=== PATIENT | female | born 1960 | race Caucasian/White ===

== ENCOUNTER 2019-01-26 01:19 | Outpatient (CLI) | payer BC, SELFPAY ==
--- NOTE | 2019-01-26 07:44 | DI.US_ITS ---
SYMPTOM/DIAGNOSIS: RT SIDED MASS OF UMBILICUS ABOUT 1 INCH DIAMETER. EPIGASTRIC PAIN R10.13, TENDERNESS TO PALPATION ULTRASOUND ABDOMINAL WALL: The area of the palpable abnormality was scanned. No mass or fluid collection is demonstrated on the images provided. IMPRESSION: Negative ultrasound of the abdominal wall. ULTRASOUND ABDOMEN: Comparison is made with 13 June 2007. The liver is normal in size and echogenicity. No focal liver lesions or biliary dilatation is seen. The gallbladder has a normal appearance. No stones or wall thickening is seen. The kidneys, spleen and pancreas are unremarkable. The aorta is normal in diameter. IMPRESSION: Negative abdomen ultrasound
== END 2019-01-26 01:39 ==
PROVIDERS: PCP Naturopath; Visit Provider Naturopath
DX: R10.13 Epigastric pain (principal); R19.05 Periumbilic swelling, mass or lump
CPT/HCPCS: 76700; 76705

== ENCOUNTER 2019-02-23 00:09 | Outpatient (CLI) | payer BC, SELFPAY ==
--- NOTE | 2019-02-23 07:30 | DI.MAMMO_ITS ---
EXAM: MAMMO SCREENING CLINICAL HISTORY: Screening, Z12.31 TECHNIQUE: Mammograms were interpreted according to the usual protocol including computer analysis with CAD system, tomosynthesis and C-view imaging. FINDINGS: The breast tissue is of moderate radiodensity with note again made of an area of asymmetric density i n the lateral portion of the right breast unchanged. There is no discrete mass. There are no suspici ous calcifications. There has been no significant interval change. IMPRESSION: No evidence of malignancy, category 1, annual screening mammography is recommended. Breast density category B. BI-RADS Cat 1 - Negative Breast Density - Category B - Scattered areas of fibroglandular density
== END 2019-02-23 00:29 ==
PROVIDERS: PCP Naturopath; Visit Provider Nurse Practitioner Family
DX: Z12.31 Encounter for screening mammogram for malignant neoplasm of breast (principal)
CPT/HCPCS: 77063; 77067

== ENCOUNTER 2019-05-14 08:33 | Day surgery (SDC) | payer BC, SELFPAY ==
--- NOTE | 2019-05-14 07:04 | W.COLOREPORT ---
Date of service: 05/14/19 Time of Service: 09:40 Colonoscopy Report Date of procedure: 05/14/19 Pre-op diagnosis general: Colon Cancer Screening Post-op diagnosis procedure note: other (Ascending colon polyp and Grade 1 internal hemorrhoids) Procedure: Colonoscopy with polypectomy Surgeon: Kalpana Stern Anesthesia proc note operative: other (General/ ASA 2/Tj Bledsoe CRNA ) Estimated blood loss (mL): 3 Pathology: other (Ascending colon polyp) Complications: None Disposition: other (General/ ASA /) Indications: 58 y/o female presents for colonoscopy screening pre-op. Her last screening was 12 years ago, which was unremarkable. She denies a family history of colon cancer. She denies any changes in bowel habits with reports of long standing intermittent constipation which fluctuates with her diet. She denies bloody or black tarry stools, abdominal pain, diarrhea. She denies constitutional symptoms. Denies use of marijuana or any other recreational or illegal drugs. Prep: Miralax/Dulcolax Procedure Start Time: 09:40 Procedure End Time: 10:11 Retraction Time: 19 minutes Findings: One small <1 cm polyp in the ascending colon Grade 1 internal hemorrhoids Procedure Description: After informed consent was obtained the patient was taken to the procedure room and placed in a left decubitous position. Monitors were applied and a time out was done. The patients name, date of , procedure, allergies to medications and metal in their body was reviewed. The patient was then sedated. Once sedated and comfortable a rectal exam was done. External exam was normal. Internal exam revealed a normal sphincter tone and no palpable masses. The scope was then introduced and retro-flexed. Grade 1 internal hemorrhoids were identified. No masses or polyps on retro-flexion. The scope was then advanced to the cecum without difficulty. The TI and appendiceal orifice were identified. The prep was adequate. The scope was then slowly retracted over 19 minutes back into the rectum. Polyps were removed with cold forceps in the ascending colon. The scope was removed and the patient was woken up and taken back to Same day surgery in stable condition. The patient tolerated the procedure well and there were no immediate complications. Follow up: The patient should follow up in 3-5 years unless they develop changes in bowel habits or other new gastrointestinal complaints.
--- NOTE | 2019-05-14 07:05 | W.PM.DSUDISC ---
Discharge Plan Disposition Patient Disposition: HOME Condition: Good Discharge Details Reason For Visit: Colon CAncer Screening Attending Provider: Kalpana Stern Primary Care Provider: Leigh Rodas Home Meds and New Rx's Prescriptions: Continued magnesium gluconate [Mag-G] 27 mg magnesium (500 mg) tablet 27 mg PO BID RF: 0 coenzyme [id number] 100-100 mg-unit capsule 1 cap PO DAILY RF: 0 aspirin 81 mg tablet,delayed release (DR/EC) 81 mg PO DAILY RF: 0 cyanocobalamin (vitamin B-12) [B-12 DOTS] 500 mcg tablet 500 mcg PO DAILY RF: 0 potassium gluconate 500 mg (83 mg) tablet 500 mg PO DAILY RF: 0 Discontinued polyethylene glycol 3350 17 gram/dose powder 238 g PO ONCE Qty: 238 RF: 0 bisacodyl [Dulcolax (bisacodyl)] 5 mg tablet,delayed release (DR/EC) 5 mg PO ONCE Qty: 4 RF: 0 Discharge Instructions Instructions: Colorectal Polyps (DC) Additional Instructions: Findings: 1 polyp Follow up: 3-5 years Please call if you develop: fevers >101.5 Nausea or Vomiting Abdominal pain that is not transient DAY SURGERY UNIT POST ENDOSCOPY INSTRUCTIONS 1. Because there will be medication in your system for the next 24 hours, you may feel a little sleepy. Your coordination will be affected. Therefore: a. Do not drive or operate dangerous equipment for 24 hours. b. Do not drink alcohol beverages for 24 hours (not even beer). c. Plan to go home and rest for the day. 2. Generally there are no restrictions on your activity after a day or so has gone by, but you may feel a bit fatigued for a few days. 3 After you arrive home you may have a light meal and return to a normal diet as you can tolerate it without feeling sick to your stomach. 4. After surgery, you may feel pain or discomfort. This should be only transient, but if it persists please contact your doctor. 5. If there are any questions regarding the findings of your procedure, please feel free to contact your doctor. 6. If you are unable to contact your doctor with a problem, contact the hospital at [phone]. 7. Continue all your regular medications unless directed otherwise. I understand the above instructions and have no questions. Signature of Patient or Responsible Adult Escort Date/Time Name of Responsible Adult Escort Signature of Nurse Date/Time Activity:: Activity as Tolerated Diet:: As Tolerated Discharge Orders Discharge Orders: Discharge Order (Routine); Ordered 05/14/19 Ordered By: Kalpana Stern DS: Diagnosis Discharge Diagnosis (1) Colorectal polyps: Status: Acute
[2019-05-14 08:48] VITALS: BP 134/86; PULSE 69; RESP 16; TEMP 36.2; O2SAT 96
[2019-05-14] MEDS: Lactated Ringers 1,000 ML 80 ML IV (09:13)
--- NOTE | 2019-05-14 09:58 | BOWEL_PTH ---
PATIENT: Minal Meléndez LOC: [facility] U#:[id number] AGE/SX: 59/F ROOM: RE05/14/[address]: Kalpana Stern MD : 1960 BED: DIS: 05/14/2019 SPEC #: [id number] RECD: 05/14/19 12:34 STATUS: TING REQ #: [id number] OSORIO: 05/14/19 09:[address]: Kalpana Stern DEPT: Surgical Specimen RECD BY: Lia Tabor ENTERED: 05/14/19 12:37 SP TYPE: Bowel OTHR DR: Leigh Rodas Tissues: 1 - BIOPSY BOWEL Procedures: GROSS AND MICRO LEVEL 4 Comments: [id number]
[2019-05-14 11:13] VITALS: BP 121/79; PULSE 69; RESP 16; TEMP 36.3; O2SAT 96
== END 2019-05-14 11:10 | disposition home or self-care (01) ==
LOC: SUR 08:33
PROVIDERS: PCP Naturopath; Visit Provider Surgery
PROC: 0DJD8ZZ Inspection of Lower Intestinal Tract, Via Natural or Artificial Opening Endoscopic (ICD-10-PCS; CPT 45378; principal; 2019-05-14 10:30)
DX: Z12.11 Encounter for screening for malignant neoplasm of colon (principal); D12.2 Benign neoplasm of ascending colon; K64.0 First degree hemorrhoids
CPT/HCPCS: 45380; 88305

== ENCOUNTER 2020-02-25 00:44 | Outpatient (CLI) | payer OTHER, SELFPAY ==
--- NOTE | 2020-02-25 08:00 | DI.MAMMO_ITS ---
EXAM: MG MAMMO SCREENING CLINICAL HISTORY: screening TECHNIQUE: Bilateral full field digital CC and MLO mammographic images were obtained with 3D tomosyn thesis and utilizing computer aided detection (CAD). COMPARISON: Available for comparison. FINDINGS: Masses/Architectural Distortion: None seen. Microcalcifications: No suspicious pleomorphic-type are seen. Skin Thickening/Nipple Retraction: None. IMPRESSION: 1. No significant interval change with no specific features of malignancy noted. 2. Unless there is more urgent need, screening mammography is recommended, as per [employer] guidelines. BI-RADS Category 1 - Negative Breast Density - Category B - Scattered areas of fibroglandular density A negative radiographic report should not delay biopsy if a dominant or clinically suspicious mass is present. Up to ten percent of cancers are not identified on mammography. A negative report may reinforce clinical impression. Adenosis and dense breasts may obscure an underlying neoplasm. False positive reports average 6 to 10%. Patient will receive a letter notifying them of these results.
== END 2020-02-25 01:04 ==
PROVIDERS: PCP Naturopath; Visit Provider Nurse Practitioner Family
DX: Z12.31 Encounter for screening mammogram for malignant neoplasm of breast (principal)
CPT/HCPCS: 77063; 77067

== ENCOUNTER 2020-12-17 07:29 | Outpatient (CLI) | payer OTHER, SELFPAY ==
--- OUTSIDE RECORDS SUMMARY | 2020-12-17 07:36 | XMS_ITS ---
:1960 Author Care Team Providers Name Role Phone DR. JUNG FALCON Primary Care Provider [phone] DR. JUNG FALCON Referring Provider [phone] Allergies Code Code System Name Reaction Severity Status Onset NKDA ? Medications Name Status Start Date Stop Date ? ? ampicillin 500 mg capsule Completed ? 2019 Take 1 capsule every 6 hours by oral route. Aspir-81 mg tablet,delayed release Active ? Not available Take 1 tablet every day by oral route. azithromycin 250 mg tablet Completed ? 11/07 TAKE 2 TABLETS (500 MG) BY ORAL ROUTE O NCE DAILY FOR 1 DAY THEN 1 TABLET (250 MG) BY ORAL ROUTE ONCE DAILY FOR 4 DAYS CoQ-10 100 mg capsule Active ? Not availa ble Take 1 capsule twice a day by oral route. GS-Similase Active ? Not available ONE CAP WITH MEALS OR LARGE SNACKS Stress B-Complex 500 mg-400 mcg-23.9 mg-3 mg tablet Active ? Not available Take 1 tablet every day by oral route. Notes: PALEO GREENS BREAST BLEND ONE CAP 3X DAILY ACTIVE B12 WITH FOLATE ONE TAB DAILY ULTRA GAMMA E ONE CAPSULE DAILY D-MULSION 2 DROPS DAILY CARDIO VH ONE CAPSULE DAILY IODINE TYROSINE ONE CAPSULE DAILY PURE PALEO VANILLIA GI FORTIFY 1 TSP AM AND PM INTESTINAL REPAIR B6+ B COMPLEX ONE CAPSULE DAILY IP6 ONE CAPSULE 2 TIMES DAILY MAGNESIUM TAURATE Problems Name Status Onset Date Source ? Vitamin D Deficiency Active 09/12/2018 ? Hyperhomocysteinemia Active 09/12/2018 ? 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 Restless Legs Active 09/12/2018 ? Essential Hypertension Active 09/12/2018 ? Venous Varices Active 09/12/2018 ? Urolithiasis Active 09/12/2018 ? Fibrocystic Disease of Breast Active 09/12/2018 ? Low Back Pain Active 09/12/2018 ? Cramp in Lower Limb Active 09/12/2018 ? Fatigue Active 09/12/2018 ? Eruption Active 09/12/2018 ? Flank Pain Active 09/12/2018 ? Lactose Intolerance Active 09/12/2018 ? Pain of Right Ankle Joint Active 09/12/2018 ? Procedures Date Name Performed by ? 05/16/2000 Hysterectomy Information not avai lable Results Lab Results None recorded. Past Encounters 11/08/2019 Avulsion of Toenail of Right Foot; Pain in Toe; Injury of Toe Isaak Jean: [address] [place] [address], Ph. Social History Tobacco Smoking Status Never Smoker Notes: 10/16/18 Vaccine List None recorded. Plan of Care Patient Instructions Performing warm water soaks with di sh soap to keep the nail bed clean I would have patient use Band-Aids to cover the matrix area should the condition worsen he should come back to see me or her PCP fo r further assistance. Reminders Provider Appointments None recorded. ? ? Lab None recorded. ? ? Referral None recorded. ? ? Procedures None recorded. ? ? Surgeries None recorded. ? ? Imaging None recorded. ? ? Vitals 11/08/2019 09:30AM PODIATRY IN-OFFICE PROCEDURE Weight Blood Pressure 102.06 kg 142/78 mm[Hg] 10/16/2018 01:00PM FOLLOW UP Height Weight BMI Blood Pressure 172.72 cm 99.79 kg 33.5 kg/m2 128/68 mm[Hg] 09/13/2018 12:45PM NEW PATIENT Height Weight BMI Blood Pressure 172.72 cm 99.79 kg 33.5 kg/m2 122/62 mm[Hg]
--- OUTSIDE RECORDS SUMMARY | 2020-12-17 07:37 | XMS_ITS ---
:1960 External Reference #:[id number] Author Care Team Providers Name Role Phone Knights Primary Care Provider Unavailable Allergies None recorded. Medications Name Status Start Date Stop Date ? ? ampicillin 500 mg capsule Completed ? 2019 azithromycin 250 mg tablet Completed ? 12/05 compounded medication Completed 12/02/2015 12/06/2019 Stress B Complex 1 cap /day compounded medication Active ? Not availa ble Paleo Greens compounded medication Active 10/12/2016 Not availa ble Breast Blend 1 cap 3xday for breast health and cancer prevention compounded medication Active 12/02/2015 Not availa ble CoQnol 1 cap 2 xday compounded medication Active 06/10/2016 Not availa ble Active B12 w/ Folate 1 tab/day with 1 cap Stress-B compounded medication Active 10/12/2016 Not availa ble Ultra Gamma E take 1 capsule daily compounded medication Completed 12/02/2015 12/06/2019 Similase 1 cap with meals or large snacks compounded medication Active 06/10/2016 Not availa ble D-Mulsion 2 drops/day compounded medication Completed 12/02/2015 10/04/2017 Cardio-VH 1 cap 3xday compounded medication Active 11/02/2017 Not availa ble Cardio VH Cardio VH1 cap once a day compounded medication Completed 10/12/2016 12/06/2019 Iodine Tyrosine 1 cap daily compounded medication Active 10/27/2016 Not availa ble Pure Paleo Vanilla use in smoothies compounded medication Completed ? 12/27/2017 GI Fortify compounded medication Active 12/02/2015 Not availa ble GI Fortify 1/2 tsp am and pm for 3 days1 tsp am an d pm for 3 [id number] AM and PM for a month compounded medication Completed ? 12/06/2019 Intestinal Repair compounded medication Active 01/05/2017 Not availa ble B6+B Complex 1 cap/day compounded medication Active 10/04/2017 Not availa ble IP6 1 cap 2x a day with meals compounded medication Active ? Not availa ble Magnesium Taurate Problems Name Status Onset Date Source ? Vitamin D Deficiency Active 11/07/2015 ? Restless Legs Active 11/07/2015 ? Fatigue Active 11/07/2015 ? Family History of Cardiovascular Disease Active 016 ? Family History of Diabetes Mellitus Active 11/07/2015 ? Hyperhomocysteinemia Active 12/02/2015 ? Essential Hypertension Active 12/02/2015 ? C-reactive Protein Abnormal Active 12/02/2015 ? Backache Active 12/08/2015 ? Fever Active 12/08/2015 ? Urolithiasis Active 12/09/2015 ? Acute Urinary Tract Infection Active 12/09/2015 ? Flank Pain Active 12/26/2015 ? Benign Essential Hypertension Active 01/01/2016 ? Low Back Pain Active 01/01/2016 ? Fibrocystic Disease of Breast Active 05/26/2016 ? Family History of Breast Cancer Active 05/26/2016 ? Eruption Active 06/10/2016 ? Scratch by Animal Claw Active 06/10/2016 ? Dietary Management Surveillance Active 10/12/2016 ? Lactose Intolerance Active 10/27/2016 ? Mammographic Breast Density Active 03/03/2017 ? Fibrocystic Changes of Bilateral Breasts Active 017 ? Cramp in Lower Limb Active 06/09/2017 ? Family History of Ischemic Heart Disease Active 018 ? High Glucose Level in Blood Active 07/05/2017 ? Serum Ferritin High Active 07/05/2017 ? Cramp in Lower Leg Associated with Rest Active 07/13/19 18 ? Homocystinemia Active 09/06/2017 ? Hyperlipidemia Screening Active 09/06/2017 ? Lipoma of Skin Active 02/19/2019 ? Gastroesophageal Reflux Disease Active 02/19/2019 ? Procedures Date Name Performed by ? 12/14/2000 Hysterectomy Information not avai lable 01/18/2019 US, Abdomen, Complete Xray [facility] [address] [place], [place] [address] ([address]) 12/16/2020 Electrocardiogram Xray [facility] [address] [place], [place] [address] (Work [address]) 12/16/2020 CT, Abdomen + Pelvis, W/wo Contrast [facility]ray [facility] [address] [place] [address] (Work [address]) Results Lab Results None recorded. Past Encounters 12/16/2020 Essential Hypertension; Cramp in Lower L imb; Backache; Urgent Desire to Urinate; Right Sided Abdominal Pain; Vitamin D Deficiency; Pain in Left Lower Limb; Right Flank Pain Leigh Rodas, ND: [address] [place] [address], Ph. [phone] 12/06/2019 Cramp in Lower Limb; Serum Ferritin High ; Vitamin D Deficiency; Family History of Thyroid Disorder; Homocystinemia; Benign Essential Hypertension Leigh Rodas, ND: [address] [place] [address], Ph. [phone] 11/07/2019 Injury of Great Toenail; Essential Hyper tension Leigh Rodas, ND: [address] [place] [address], Ph. [phone] Social History Tobacco Smoking Status Never Smoker Vaccine List Vaccine Type measles 08/14/1965 mumps 08/14/1965 pertussis 08/14/1965 polio, unspecified formulation 08/14/1965 rubella/mumps 08/14/1965 tetanus toxoid, unspecified formulation 08/14/1965 Plan of Care Patient Instructions 1. DR Liza Kay- MEtabolic REnewel- 2. - bloodwork and CT abdomen and pelvis - and [facility] 1. bloodwork come in TuesdayDec 09 7:30am 2. CArdio Vh- 1 cap 2xday 3. keep taking Vit D, MAgnesium B vits- etc PAleogreens every day Occult Blood- stool test- ask pcp or ani betts look into getting kit here but they might have them avail- YOUR RESULTS CAME BACK- ferritin is low- so Please do NOT donate blood right now- get stool test first and work on eating a little more iron- red meat 2xweek if not already, spinach, raisins, fisg, beans/legumes 1. Keep toe clean 2. Report to Podiatry tomorrow for toen sulaiman removal and Abs if necessary.Sent to Dr. Roldan 3. Return for general health. Blood pres sure readings and dietary surveillance Reminders Provider Appointments None recorded. ? ? Lab None recorded. ? ? Referral None recorded. ? ? Procedures None recorded. ? ? Surgeries None recorded. ? ? Imaging None recorded. ? ? Vitals 12/16/2020 08:45AM ESTABLISHED PATIENT 45 Weight Blood Pressure 227 lbs (1) 138/86 mm[Hg] (2) 150/98 mm[Hg] 11/07/2019 07:30AM ESTABLISHED PATIENT 30 Weight Blood Pressure 223 lbs 16 oz 138/88 mm[Hg] 03/28/2019 04:00PM ESTABLISHED PATIENT 45 Blood Pressure (1) 130/80 mm[Hg] (2) 128/82 mm[Hg] 01/31/2019 03:00PM ESTABLISHED PATIENT 45 Blood Pressure 132/88 mm[Hg] 01/18/2019 08:00AM ESTABLISHED PATIENT 45 Weight Blood Pressure 228 lbs 16 oz 140/90 mm[Hg] 11/02/2017 10:30AM ESTABLISHED PATIENT 30 Height Blood Pressure 5 ft 9 in 142/88 mm[Hg] 10/04/2017 11:00AM ESTABLISHED PATIENT 30 Height Weight BMI Blood Pressure 5 ft 9 in 216 lbs 16 oz 32 kg/m2 132/90 mm[Hg] 09/06/2017 01:15PM ESTABLISHED PATIENT 30 Height Weight BMI Blood Pressure 5 ft 9 in 215 lbs 16 oz 31.9 kg/m2 130/80 mm[Hg] 06/09/2017 01:45PM ESTABLISHED PATIENT 30 Height Weight BMI 5 ft 9 in 223 lbs 16 oz 33.1 kg/m2 03/03/2017 09:45AM ESTABLISHED PATIENT 30 Height Weight BMI Blood Pressure 5 ft 9 in 220 lbs 16 oz 32.6 kg/m2 120/90 mm[Hg] 01/05/2017 10:00AM ESTABLISHED PATIENT 30 Height Weight BMI 5 ft 9 in 218 lbs 32.2 kg/m2 12/02/2016 10:00AM ESTABLISHED PATIENT 60 Height Weight BMI Blood Pressure 5 ft 9 in 223 lbs 32.9 kg/m2 130/84 mm[Hg] 10/27/2016 11:15AM ESTABLISHED PATIENT 45 Height Weight BMI 5 ft 9 in 230 lbs 34 kg/m2 10/12/2016 11:00AM ESTABLISHED PATIENT 45 Height Weight BMI Blood Pressure 5 ft 9 in 232 lbs 16 oz 34.4 kg/m2 140/80 mm[Hg] 06/10/2016 11:00AM ESTABLISHED PATIENT 30 Height Weight BMI Blood Pressure 5 ft 9 in 236 lbs 34.9 kg/m2 110/80 mm[Hg] 05/26/2016 11:00AM ESTABLISHED PATIENT 45 Height Weight BMI Blood Pressure 5 ft 9 in 236 lbs 16 oz 35 kg/m2 130/80 mm[Hg] 01/01/2016 11:00AM ESTABLISHED PATIENT 30 Height Weight BMI Blood Pressure 5 ft 9 in 228 lbs 16 oz 33.8 kg/m2 118/76 mm[Hg] 12/26/2015 11:00AM ESTABLISHED PATIENT 30 Height Blood Pressure 5 ft 9 in 138/98 mm[Hg] 12/08/2015 11:30AM SICK VISIT Height 5 ft 9 in 12/02/2015 11:15AM ESTABLISHED PATIENT 45 Height Blood Pressure 5 ft 9 in 150/100 mm[Hg] 11/07/2015 11:30AM NEW PATIENT 60 Height Weight BMI Blood Pressure 5 ft 9 in 236 lbs 34.9 kg/m2 150/98 mm[Hg]
--- NOTE | 2020-12-17 13:00 | RT.EKG_ITS ---
APPROVED REPORT Exam: Resting ECG Reason for Exam: Hypertension Patient Location: O HR:72 bpm ECG Measurements Heart Rate 72 AXIS WI 169 P 39 QRSd 89 QRS 43 QT 382 T 28 QTc 418 Conclusion Sinus rhythm...normal P axis, V-rate 60- 99
== END 2020-12-17 07:30 | disposition home or self-care (01) ==
LOC: RT 07:35
PROVIDERS: PCP Naturopath; Visit Provider Naturopath
DX: I10 Essential (primary) hypertension (principal); R10.9 Unspecified abdominal pain
CPT/HCPCS: 93005; 93010

== ENCOUNTER 2020-12-18 04:15 | Outpatient (CLI) | payer OTHER, SELFPAY ==
[2020-12-18 08:33] LABS: Abs Immature Grans 0.01 10^3/uL (0.0-0.06); Absolute Basophil Count 0.03 10^3/uL (0.0-0.2); Absolute Lymphocyte Count 1.19 10^3/uL (1.2-3.4); Absolute Neutrophil Count 2.63 10^3/uL (1.2-6.7); Basophils % 0.7; HCT 37.8 % (36.0-46.0); HGB 11.7 g/dL (11.2-15.7); Immature Grans % 0.2; Lymphocytes % 27.9; MCH 24.8 pg (27.0-33.0); MCV 80.3 fL (80-95); MPV 10.3 fL (8.0-11.0); Monocytes % 9.4; Neutrophils % 61.8; Nucleated RBC 0 %; Platelet Count 265 10^3/uL (130-400); RBC 4.71 10^6/uL (3.93-5.22); RDW 15.2 % (11.7-14.6); RDW-SD 44.5 fL; WBC 4.26 10^3/uL (4.4-10.8)
[2020-12-18 08:49] LABS: Hemoglobin A1C 5.7 % (<5.7)
[2020-12-18 09:18] LABS: ALT 27 U/L (14-59); AST 20 U/L (15-37); Albumin 3.9 g/dL (3.4-5.0); Alkaline Phosphatase 82 U/L (46-116); Anion Gap 9.8 mmol/L (3-11); BUN 13 mg/dL (7-18); Bilirubin, Total 0.5 mg/dL (0.2-1.0); CO2 27.2 mmol/L (21.0-32.0); CREATININE 0.9 mg/dL (0.55-1.02); Calcium 9.1 mg/dL (8.5-10.1); Chloride 105 mmol/L (98-107); Glucose 92 mg/dL (74-106); Potassium 4.4 mmol/L (3.5-5.1); Sodium 142 mmol/L (136-145)
[2020-12-18 09:33] LABS: D-Dimer 334 ng/mlFEU (<500)
[2020-12-18 09:44] LABS: Vitamin D 25 Total 29.6 ng/mL (30-100)
== END 2020-12-18 04:16 | disposition home or self-care (01) ==
LOC: LBO 04:15
PROVIDERS: PCP Naturopath; Visit Provider Naturopath
DX: R39.15 Urgency of urination (principal); E55.9 Vitamin D deficiency, unspecified; M79.605 Pain in left leg
CPT/HCPCS: 36415; 80053; 82306; 81003; 83036; 85025; 85379

== ENCOUNTER 2020-12-18 15:00 | Outpatient (REF) | payer OTHER, SELFPAY ==
[2020-12-18 16:48] LABS: Bilirubin Negative (Negative); Blood Negative (Negative); Clarity Clear (Clear); Glucose Negative (Negative); Ketones 40 mg/dL (Negative); Leukocyte Esterase Negative (Negative); Nitrite Positive (Negative); Specific Gravity >= 1.030 (1.005-1.025); Urobilinogen 0.2 EU/dL (Up TO 0.2); pH 5.5 (5-8)
[2020-12-18 17:17] LABS: Bacteria Many HPF (Negative); Casts Negative LPF (Negative); Crystals Many Calcium Oxalate HPF (Negative); Epithelial Cells Few HPF (Negative); Mucus Negative (Negative); RBC Negative HPF (0-2); WBC 20-50 HPF (0-5)
[2020-12-18 17:18] LABS: C & S Indicated? Yes
== END 2020-12-18 15:01 | disposition home or self-care (01) ==
LOC: LBN 15:00
PROVIDERS: PCP Naturopath; Visit Provider Naturopath
DX: R39.15 Urgency of urination (principal)
CPT/HCPCS: 87077; 81003; 81015; 87086; 87186

== ENCOUNTER 2020-12-22 14:24 | Outpatient (REF) | payer OTHER, SELFPAY ==
[2020-12-24 08:54] LABS: Timed Urine Volume 2300 mL; Uric Acid Urine 19.9 mg/dL (See Note); Uric Acid Urine 24hr 458 mg/24hrs (250-750)
== END 2020-12-22 14:25 | disposition home or self-care (01) ==
LOC: LBN 14:24
PROVIDERS: PCP Naturopath; Visit Provider Naturopath
DX: R39.15 Urgency of urination (principal); E55.9 Vitamin D deficiency, unspecified; M79.605 Pain in left leg
CPT/HCPCS: 81050; 84560

== ENCOUNTER 2021-01-29 03:07 | Outpatient (CLI) | payer OTHER, SELFPAY ==
[2021-01-29 10:30] LABS: Iron 42 ug/dL (50-170); Total Iron Binding Capacity 418 ug/dL (250-450)
[2021-01-29 11:02] LABS: Calculated LDL 106 mg/dL (<100); Cholesterol 196 mg/dL (<200); Ferritin 19 ng/mL (8-252); HDL Cholesterol 82 mg/dL (40-60); TSH 2.25 uIU/mL (0.36-3.74); Triglyceride 41 mg/dL (<150); Vitamin B12 513 pg/mL (193-986)
[2021-01-29 11:05] LABS: Folate > 20.0 ng/mL (8.6-20.0)
[2021-01-29 11:27] LABS: FREE T4 0.95 ng/dL (0.76-1.46)
[2021-01-29 16:47] LABS: T3,Free 2.8 pg/mL (2.8-5.3)
== END 2021-01-29 03:08 | disposition home or self-care (01) ==
LOC: LBO 03:07
PROVIDERS: PCP Naturopath; Visit Provider Naturopath
DX: R00.0 Tachycardia, unspecified (principal); R77.8 Other specified abnormalities of plasma proteins; Z13.220 Encounter for screening for lipoid disorders; E61.1 Iron deficiency
CPT/HCPCS: 36415; 80061; 82607; 82728; 82746; 83540; 83550; 84439; 84443; 84481

== ENCOUNTER 2021-03-06 10:17 | Outpatient (REF) | payer OTHER, SELFPAY | END 2021-03-06 10:18 | disposition home or self-care (01) | LOC: LBN 10:17 | PROVIDERS: PCP Naturopath; Visit Provider Nurse Practitioner Family | DX: R30.0 Dysuria (principal) | CPT/HCPCS: 87077; 87086; 87186 ==

== ENCOUNTER 2021-03-10 00:59 | Outpatient (CLI) | payer OTHER, SELFPAY ==
--- NOTE | 2021-03-10 14:30 | DI.MAMMO_ITS ---
Exam(s) MAMMO SCREENING EXAM: MAMMO SCREENING CLINICAL HISTORY: screening TECHNIQUE: Mammograms were interpreted according to the usual protocol including computer analysis w [employer] CAD system, tomosynthesis and C-view imaging. COMPARISON: 2011 through 2019 FINDINGS: The breasts are composed of scattered fibroglandular densities, Breast Density category B. No suspicious masses or suspicious microcalcifications are seen. No skin thickening or abnormal axillary lymph nodes are seen. There has been no significant change from prior exams. IMPRESSION: BI-RADS Category 1, Negative mammogram Yearly screening mammography is recommended. Breast Density - Category B, scattered fibroglandular densities. A negative radiographic report should not delay biopsy if a dominant or clinically suspicious mass is present. Up to ten percent of cancers are not identified on mammography. A negative report may reinforce clinical impression. Adenosis and dense breasts may obscure an underlying neoplasm. False positive reports average 6 to 10%. Patient will receive a letter notifying them of these results.
== END 2021-03-10 01:19 ==
PROVIDERS: PCP Naturopath; Visit Provider Nurse Practitioner Family
DX: Z12.31 Encounter for screening mammogram for malignant neoplasm of breast (principal)
CPT/HCPCS: 77063; 77067

== ENCOUNTER 2021-06-18 16:36 | Outpatient (REF) | payer OTHER, SELFPAY ==
[2021-06-18 12:50] LABS: Bilirubin Negative (Negative); Blood Negative (Negative); Clarity Sl Cloudy (Clear); Glucose Negative (Negative); Ketones Negative (Negative); Leukocyte Esterase Trace (Negative); Nitrite Negative (Negative); Specific Gravity >= 1.030 (1.005-1.025); Urobilinogen 0.2 EU/dL (Up TO 0.2); pH 6.5 (5-8)
[2021-06-18 13:08] LABS: Bacteria Few HPF (Negative); C & S Indicated? Yes; Casts Negative LPF (Negative); Crystals Negative HPF (Negative); Epithelial Cells Few HPF (Negative); Mucus Negative (Negative); RBC Negative HPF (0-2)
== END 2021-06-18 16:37 | disposition home or self-care (01) ==
LOC: LBN 16:36
PROVIDERS: PCP Naturopath; Visit Provider Obstetrics & Gynecology
DX: R30.0 Dysuria (principal)
CPT/HCPCS: 87077; 81003; 81015; 87086; 87186

== ENCOUNTER 2021-07-12 09:51 | Inpatient (IN) | payer OTHER, SELFPAY ==
[2021-07-12] VITALS (12 sets, daily range): BP systolic 91–131; BP diastolic 64–85; PULSE 70–114; RESP 16–19; TEMP 36–36.7; O2SAT 94–97
--- NOTE | 2021-07-12 10:00 | ED.GENADUL_ITS ---
Discharge Plan Disposition Patient Disposition: [facility] INPATIENT Condition: Stable Discharge Details Clinical Impression: Acute diverticulitis, Bowel perforation Admit Date/Time: 07/12/21 11:52 Admit Provider: Abby Sanches Attending Provider: Abby Sanches Primary Care Provider: Leigh Rodas ED Provider: Yaneth Hernandez Discharge Data Discharge Date/Time-TO BE ENTERED AT DEPARTURE: 07/12/21 12:45 Medical Decision Making 1000 -- 61-year-old female presents with lower abdominal pain, worse on the left side in addition to nausea and diarrhea for the past few days. Heart rate elevated on arrival, now within normal limits and she appears nontoxic. Her abdomen is soft but she is tender in the lower quadrants, worse on the left lower side. Includes differential diagnosis includes diverticulitis, cystitis, pyelonephritis, gastroenteritis, colitis. We will place an IV, bolus IV fluids, screening labs, urinalysis, CT abdomen pelvis and give a dose of IV Tylenol Zofran and reassess. Labs and imaging reviewed. White blood cell count 13. Normal electrolytes. Lipase normal. Urinalysis negative for infection. CT notes acute sigmoid diverticulitis with local free air c/w small perforation but no abscess or loculated fluid collection noted. 1145 -- Case discussed with Dr. Sanches who accepts patient for admission. Dose of IV Cipro and Flagyl ordered. Patient has remained hemodynamically stable. Her pain has been controlled. She is agreeable with plan for admission. Medical Records Medical records reviewed: Yes I reviewed the patient's medical records. Imaging Data Radiologic Study: Radiologist's impression: CT Abdomen And Pelvis With Contrast Exam date and time: 07/12/2021 10:17 AM Age: 61 years old Clinical indication: Abdominal pain; Generalized; Patient HX: Lower abd pain - 2-3 days worse on left TECHNIQUE: Imaging protocol: Computed tomography of the abdomen and pelvis with contrast. Radiation optimization: All CT scans at this facility use at least one of these dose optimization techniques: automated exposure control; mA and/or kV adjustment per patient size (includes targeted exams where dose is matched to clinical indication); or iterative reconstruction. Contrast material: OMNI 350; Contrast volume: 100 ml; Contrast route: INTRAVENOUS (IV);? COMPARISON: US soft tiss abd wall/low back 01/26/2019 8:29 AM FINDINGS: Lungs: 4 mm lung soft tissue nodule in the lateral basal segment of the left lower lobe (series 5, image 49). 5 mm lung soft tissue nodule in the lateral segment of the right middle lobe (series 5, image 41). Heart: The visualized heart is within normal limits for size. There is no evidence of pericardial abnormality.? Liver: The liver is normal in size and contour.? Gallbladder and bile ducts: The gallbladder is distended with normal wall thickness and does not demonstrate calcified gallstones. No intra- or extra-hepatic biliary ductal dilatation.? Pancreas: The pancreas appears normal.? Spleen: The spleen appears normal.? Adrenal glands: The adrenals appear normal. Kidneys and ureters: The kidneys enhance symmetrically and empty into non-dilated ureters.? Stomach and bowel: Colonic diverticulosis. Findings consistent with acute diverticulitis in the sigmoid colon in the left lower quadrant. Adjacent peritoneal thickening and chrissy-diverticular fat stranding identified. Trace free air adjacent to the diverticula but well-marginated collection identified. Trace free fluid in the dependent portion of the pelvis. Appendix: The appendix appears diminutive. Intraperitoneal space: Trace free fluid in the dependent portion of the pelvis. Vasculature: The aorta is nonaneurysmal. The IVC appears normal.? Lymph nodes: There are no enlarged lymph nodes.? Urinary bladder: The bladder is distended and demonstrates no focal contour abnormality. Reproductive: The uterus is surgically absent. Mild soft tissue prominence of the right vaginal cuff measuring approximately 2.4 x 2.8 x 1.9 cm (axial series 5, image 813). Bones/joints: Grade 1 anterolisthesis L3 on L4 by approximately 5 mm. Degenerative disc disease at L4-5. Soft tissues: Unremarkable. IMPRESSION: 1. Findings consistent with acute sigmoid diverticulitis. Local free air identified consistent with small perforation. No fluid identified adjacent to the sigmoid, but minimal fluid identified in the dependent portion of the pelvis. No loculated well formed collection/abscess identified. 2. Mild soft tissue prominence of the right vaginal cuff measuring approximately 2.4 x 2.8 x 1.9 cm. No comparisons available. Recommend correlation with surgical history and any available outside imaging. Lab Data Lab results reviewed: Yes I reviewed the patient's lab results. Labs: Laboratory Tests Range/Units 07/12/21 07/12/21 07/12/21 10:00 10:00 10:15 WBC (4.4-10.8) 10^3/uL 13.01 H RBC (3.93-5.22) 10^6/uL 4.77 Hgb (11.2-15.7) g/dL 13.5 Hct (36.0-46.0) % 41.0 MCV (80-95) fL 86.0 MCH (27.0-33.0) pg 28.3 MCHC (32.0-36.0) % 32.9 RDW (11.7-14.6) % 13.3 Plt Count (130-400) 10^3/uL 214 MPV (8.0-11.0) fL 9.9 Immature Gran % 0.6 Neutrophils % 80.8 Lymphocytes % 11.5 Monocytes % 6.9 Eosinophils % 0.0 Basophils % 0.2 Nucleated RBC % % 0 Absolute Neutrophils (1.2-6.7) 10^3/uL 10.51 H Absolute Lymphocytes (1.2-3.4) 10^3/uL 1.50 Absolute Monocytes (0.1-0.8) 10^3/uL 0.90 H Absolute Eosinophils (0.0-0.7) 10^3/uL 0.00 Absolute Basophils (0.0-0.2) 10^3/uL 0.03 Sodium (136-145) mmol/L 138 Potassium (3.5-5.1) mmol/L 3.6 Chloride (98-107) mmol/L 101 Carbon Dioxide (21.0-32.0) mmol/L 25.5 Anion Gap (3-11) mmol/L 11.5 H BUN (7-18) mg/dL 14 Creatinine (0.55-1.02) mg/dL 0.9 Estimated GFR/1.73 m2 (mL/min/1.73m2) >= 60.00 Glucose (74-106) mg/dL 142 H Calcium (8.5-10.1) mg/dL 9.4 Total Bilirubin (0.2-1.0) mg/dL 0.8 AST (15-37) U/L 16 ALT (14-59) U/L 25 Alkaline Phosphatase (46-116) U/L 81 Total Protein (6.4-8.2) g/dL 7.7 Albumin (3.4-5.0) g/dL 3.5 Lipase (73-393) U/L 32 Urine Color (Yellow) Yellow Urine Clarity (Clear) Clear Urine pH (5-8) 6.0 Ur Specific [place] (1.005-1.025) >= 1.030 H Urine Protein (Negative) mg/dL 30 H Urine Ketones (Negative) mg/dL 40 H Urine Blood (Negative) Negative Urine Nitrite (Negative) Negative Urine Bilirubin (Negative) Small H Urine Urobilinogen (Up TO 0.2) EU/dL 0.2 Ur Leukocyte Esterase (Negative) Negative Urine RBC (0-2) HPF 0-2 Urine WBC (0-5) HPF Negative Ur Epithelial Cells (Negative) HPF Few Urine Crystals (Negative) HPF Negative Urine Bacteria (Negative) HPF Negative Urine Casts (Negative) LPF 0-2 Hyaline Urine Mucus (Negative) Trace Ur Culture Indicated? No Urine Glucose (Negative) mg/dL Negative HPI General Mode of arrival: ambulatory . Date/Time Provider Initiated Documentation: 07/12/21 09:52 . Limitations to Documentation: no limitations . Information obtained by: patient . HPI Narrative: Patient is a 61-year-old female who presents with lower abdominal pain, worse on the left side for the past few days. Patient states the pain is intermittent and crampy and worse with movement and carrying heavy objects. She states the pain was 8/10 earlier today and she took 3 tabs of 325 mg aspirin now the pain is 4/10. She states she thought the pain was gas earlier this week but the symptoms have not gone away and she spoke to her friend who is a nurse who advised that she come to the ER for further evaluation. Patient states she has been treated for UTIs recently with antibiotics, last use 2 weeks ago. She denies any current urinary symptoms. She admits to nausea but denies any vomiting. She states she has had loose brown and black stools over the past 3 days. She denies any known fever but does admit to occasional cold chills the past few days. Patient states she had a colonoscopy 2 years ago. Records note that she was found to have internal hemorrhoids and a polyp. Related Data Home Medications Medication Instructions Recorded Confirmed aspirin 81 mg tablet,delayed 81 mg PO DAILY 04/27/19 07/12/21 release coenzyme [id number] E 100 mg-100 1 cap PO DAILY 04/27/19 07/12/21 unit capsule magnesium gluconate 27 mg 27 mg PO BID 04/27/19 07/12/21 magnesium (500 mg) tablet (Mag-G) lactobacillus combination no.8 3 3,000 mmu cells PO DAILY 02/04/20 07/12/21 billion cell capsule (Adult Probiotic) vitamin B complex (B 1 tab PO DAILY 03/06/21 07/12/21 Complex-Vitamin B12) potassium chloride 10 mEq 10 meq PO DAILY 03/23/21 07/12/21 capsule,extended release Allergies Allergy/AdvReac Type Severity Reaction Status Date / Time No Known Allergies Allergy Verified 07/12/21 10:00 General Stated Complaint: Abd Prob YANIQUE: 3 Review of Systems All systems reviewed & are unremarkable except as noted in HPI and below Constitutional Constitutional: Reports as per HPI, Reports chills, Denies fever(s) and Reports poor appetite Eyes Eyes: Denies blurry vision ENT Ears, Nose, Mouth, and Throat: Denies dizziness, Denies sore throat and Denies throat swelling Cardiovascular Cardiovascular: Denies chest pain and Denies dyspnea Respiratory Respiratory: Denies cough and Denies dyspnea Gastrointestinal Gastrointestinal: Reports abdominal pain, Reports diarrhea, Reports nausea and Denies vomiting Genitourinary Genitourinary: Denies hematuria, Denies dysuria, Denies urinary hesitancy and Denies urinary urgency Musculoskeletal Musculoskeletal: Denies back pain and Denies numbness Integumentary/Breasts Skin/Breast: Denies lesions and Denies rash Neurologic Neurologic: Denies dizziness, Denies localized weakness and Denies numbness Allergic/Immunologic Allergic/Immunologic: Denies throat swelling PFSH All Active Problems (Updated 05/18/19 @ 06:43 by Callie Nowak RN) Acute diverticulitis (Acute) Bowel perforation (Acute) GINI (stress urinary incontinence, female) (Acute) Cystocele (Acute) Colorectal polyps (Acute ~05/14/19) Family history of breast cancer (Acute 03/22/17) Mother Acquired absence of both cervix and uterus (Acute 02/26/16) MERRICK/BSO age 41 for Endometriosis and fibroid Medical History (Updated 07/12/21 @ 13:38 by Yaneth Hernandez DO) Endometriosis Uterine leiomyoma Surgical History (Updated 05/18/19 @ 06:43 by Callie Nowak RN) Abdominal hysterectomy 2000 History of colonoscopy (~05/14/19) 05/03 - tubular adenoma 2007- nl Oophrectomy, Both 2000 Family History Mother Breast cancer at 50 Other Family history of breast cancer Personal history of malignant neoplasm Social History (Updated 04/27/19 @ 10:16 by MICHAEL Grove) Smoking/Tobacco Use Status: Never Smoking risk assessment performed?: Yes Alcohol Intake: current Alcohol Intake frequency: holidays/special occasions only Alcohol type: wine Drug use: Never Substance use type: does not use Details: takes cbd oil Do you feel safe at home: Yes Do you feel safe in your relationship?: Yes Female Reproductive History Menstrual Menopause type: surgical History History 2 Para 3 Hx # Term Pregnancies Multiple births Hx # Pregnancies Ectopic pregnancies AB induced Hx Number of Living Children AB spontaneous Exam Const General: cooperative, healthy appearing and no acute distress Orientation: alert, awake and oriented x3 HENMT Head: normal to inspection Mouth: oral mucosae normal Eyes General: appearance normal, both eyes and all related structures Neck Neck: normal visual inspection Resp Effort & Inspection: normal respiratory effort and able to speak in complete sentences Auscultation: clear to auscultation bilaterally Cardio Rate: regular rate Rhythm: regular rhythm GI Inspection: normal to inspection Palpation: soft, not firm, no guarding, not rigid and tender in the LLQ, in the RLQ and suprapubicly Auscultation: hypoactive bowel sounds Skin General skin exam: no rashes or lesions noted Neuro General: patient alert, patient awake and patient oriented x3 Motor: muscle tone normal throughout Extrem General: normal to inspection and full ROM Psych Appearance: grossly normal Affect: normal affect Course Vital Signs Vital signs: Vital Signs Temperature 98.0 F 07/12/21 09:55 Pulse 114 H 07/12/21 09:55 Respiratory Rate 16 07/12/21 09:55 Blood Pressure 127/85 07/12/21 09:55 Pulse Oximetry 95 07/12/21 09:55 Temperature 98.0 F 07/12/21 09:55 Temperature Source Temporal Artery Scan 07/12/21 09:55 Pulse 114 H 07/12/21 09:55 Respiratory Rate 16 07/12/21 09:55 Respiratory Effort Non-Labored 07/12/21 09:59 Blood Pressure 127/85 07/12/21 09:55 Blood Pressure Position Sitting 07/12/21 09:55 Pulse Oximetry 95 07/12/21 09:55 Oxygen Delivery Method Room Air 07/12/21 09:55 Oxygen Flow Rate 0 07/12/21 09:55 Pain Level 5 07/12/21 09:55 PAWSS Have you Been Recently Intoxicated or Drunk Within the Last 30 days?: No Have you Ever Experienced Previous Episodes of Alcohol Withdrawal?: No Have you ever Experienced Withdrawal Seizures?: No Have you ever Experienced Delirium Tremens(DT)s?: No Have you ever undergone Alcohol Rehabilitation Treatment (i.e, inpt ot outpatient treatment programs)?: No Have you ever Experienced Blackouts?: No Have you ever Combined Alcohol with other Downers within the last 90 days?: No Have you ever Combined Alcohol with any other Substance of Abuse during the last 90 days?: No Positive Blood Alcohol level on Presentation? [PCS.BAL]: No Evidence of Increased Autonomic Activity (i.e. HR>120, tremor, sweating, agitation, nausea)?: No Result: 0
[2021-07-12] MEDS: Ondansetron 4 MG/2 ML VIAL IVP (10:27)
[2021-07-12] MEDS: ACETAMINOPHEN 1,000 MG/100 ML BTL 400 MG IVPB (10:27)
[2021-07-12] MEDS: Normal Saline 1,000 ML 1000 ML IV (10:28)
[2021-07-12 10:37] LABS: Abs Immature Grans 0.08 10^3/uL (0.0-0.06); Absolute Neutrophil Count 10.51 10^3/uL (1.2-6.7); Basophils % 0.2; HGB 13.5 g/dL (11.2-15.7); Immature Grans % 0.6; Lymphocytes % 11.5; MCH 28.3 pg (27.0-33.0); MCHC 32.9 % (32.0-36.0); MPV 9.9 fL (8.0-11.0); Monocytes % 6.9; Neutrophils % 80.8; Nucleated RBC 0 %; Platelet Count 214 10^3/uL (130-400); RBC 4.77 10^6/uL (3.93-5.22); RDW 13.3 % (11.7-14.6); RDW-SD 41.5 fL; WBC 13.01 10^3/uL (4.4-10.8)
[2021-07-12 10:40] LABS: Absolute Basophil Count 0.03 10^3/uL (0.0-0.2)
[2021-07-12 10:41] LABS: Bilirubin Small (Negative); Blood Negative (Negative); Clarity Clear (Clear); Glucose Negative (Negative); Ketones 40 mg/dL (Negative); Leukocyte Esterase Negative (Negative); Nitrite Negative (Negative); Specific Gravity >= 1.030 (1.005-1.025); Urobilinogen 0.2 EU/dL (Up TO 0.2)
[2021-07-12 10:49] LABS: Epithelial Cells Few HPF (Negative); RBC 0-2 HPF (0-2); WBC Negative HPF (0-5)
[2021-07-12 10:50] LABS: Bacteria Negative HPF (Negative); C & S Indicated? No; Casts 0-2 Hyaline LPF (Negative); Crystals Negative HPF (Negative); Mucus Trace (Negative)
[2021-07-12 11:05] LABS: ALT 25 U/L (14-59); AST 16 U/L (15-37); Albumin 3.5 g/dL (3.4-5.0); Alkaline Phosphatase 81 U/L (46-116); Anion Gap 11.5 mmol/L (3-11); BUN 14 mg/dL (7-18); Bilirubin, Total 0.8 mg/dL (0.2-1.0); CO2 25.5 mmol/L (21.0-32.0); CREATININE 0.9 mg/dL (0.55-1.02); Calcium 9.4 mg/dL (8.5-10.1); Chloride 101 mmol/L (98-107); Glucose 142 mg/dL (74-106); Lipase 32 U/L (73-393); Potassium 3.6 mmol/L (3.5-5.1); Sodium 138 mmol/L (136-145); Total Protein 7.7 g/dL (6.4-8.2)
[2021-07-12] MEDS: Omnipaque 350 MG/ML 100 ML BTL IJ (11:28)
--- NOTE | 2021-07-12 11:30 | DI.CT_ITS ---
Exam(s) CT ABDOMEN PELVIS W EXAM: CT ABDOMEN PELVIS W CLINICAL HISTORY: lower abd pain, worse on left TECHNIQUE: Imaging Protocol: Axial computed tomography images with coronal and sagittal reformatted images were created and reviewed CONTRAST MATERIAL: Intravenous: Omnipaque 350 Contrast volume:100 mL Oral: No COMPARISON: No exams were available for comparison FINDINGS: ABDOMEN: Lung Bases: There is a 4.5 mm nodule in the right middle lobe. There is a 4.6 cm nodule in the later al aspect of the left lower lobe. There is atelectasis in the dependent portions of the lung bases. There is a small hiatal hernia. There is thickening of the wall of the distal visualized esophagus. Liver: Normal density. No measurable mass. Portal, Superior Mesenteric, and Splenic Veins: Unremarkable. Gallbladder and Biliary Tract: No radiodense calculus or dilation. Pancreas: Normal density, no abnormal calcifications or inflammatory process. Spleen: Normal. Adrenals: No masses seen. Kidneys: Normal size, contour and axis. No radiodense stones or obstructive uropathy. There is a ques tion of a 1 cm hypodense exophytic area in the lateral aspect of the midpole of the right kidney. (S leandro 5, image 375). Abdominal Aorta: Abdominal portion non-dilated. Atherosclerosis. Bowel: There is bowel wall thickening seen in the proximal and mid sigmoid colon with pericolonic inf lammatory changes. There do appear to be 1 or 2 diverticula in the region. There is also extraperit ledbetter air adjacent to the inflamed sigmoid colon. There is no evidence of bowel obstruction. No jonh dence of appendicitis. Peritoneal Cavity: There is a trace amount of free fluid in the pelvis. Lymph Nodes: Within normal limits. Bones: Within normal limits for the patient's age. Soft Tissues: Unremarkable. PELVIS: Bladder: Symmetric distention, no gross wall thickening. Reproductive Organs: Status post hysterectomy. Lymph Nodes: Within normal limits. Bones: Within normal limits for the patient's age. IMPRESSION: 1. Findings consistent with acute sigmoid diverticulitis. Local free air identified is consistent wi th a small perforation. There is a trace amount of free fluid in the pelvis but no focal fluid colle ction to suggest an abscess. 2. Two pulmonary nodules seen in the lung bases. For high risk patients (history of smoking or other risk fractures), a CT scan in 12 months is recommended for further evaluation. (Josué et al, 2017 ). 3. Question of a 1 cm hypodense mass in the lateral aspect of the midpole of the right kidney. Furth er evaluation with MRI of the kidneys without and with contrast is recommended. RADIATION DOSE DELIVERED: 1,350.42mGy.cm Total DLP DATA REPOSITORY: All CT scans at this facility are submitted to the National Radiology Data Registry (NRDR) Dose Index Registry (DIR) with the [employer] (A[employer]). RADIATION OPTIMIZATION: All CT scans at this facility use at least one of these dose optimization te chniques: automated exposure control; mA and/or kV adjustment per patient size (includes targeted exa ms where dose is matched to clinical indication); or iterative reconstruction.
--- NOTE | 2021-07-12 11:43 | DI.VRAD_ITS ---
PROCEDURE INFORMATION: Exam: CT Abdomen And Pelvis With Contrast Exam date and time: 07/12/2021 10:17 AM Age: 61 years old Clinical indication: Abdominal pain; Generalized; Patient HX: Lower abd pain - 2-3 days worse on left TECHNIQUE: Imaging protocol: Computed tomography of the abdomen and pelvis with contrast. Radiation optimization: All CT scans at this facility use at least one of these dose optimization techniques: automated exposure control; mA and/or kV adjustment per patient size (includes targeted exams where dose is matched to clinical indication); or iterative reconstruction. Contrast material: OMNI 350; Contrast volume: 100 ml; Contrast route: INTRAVENOUS (IV); COMPARISON: US soft tiss abd wall/low back 01/26/2019 8:29 AM FINDINGS: Lungs: 4 mm lung soft tissue nodule in the lateral basal segment of the left lower lobe (series 5, image 49). 5 mm lung soft tissue nodule in the lateral segment of the right middle lobe (series 5, image 41). Heart: The visualized heart is within normal limits for size. There is no evidence of pericardial abnormality. Liver: The liver is normal in size and contour. Gallbladder and bile ducts: The gallbladder is distended with normal wall thickness and does not demonstrate calcified gallstones. No intra- or extra-hepatic biliary ductal dilatation. Pancreas: The pancreas appears normal. Spleen: The spleen appears normal. Adrenal glands: The adrenals appear normal. Kidneys and ureters: The kidneys enhance symmetrically and empty into non-dilated ureters. Stomach and bowel: Colonic diverticulosis. Findings consistent with acute diverticulitis in the sigmoid colon in the left lower quadrant. Adjacent peritoneal thickening and chrissy-diverticular fat stranding identified. Trace free air adjacent to the diverticula but well-marginated collection identified. Trace free fluid in the dependent portion of the pelvis. Appendix: The appendix appears diminutive. Intraperitoneal space: Trace free fluid in the dependent portion of the pelvis. Vasculature: The aorta is nonaneurysmal. The IVC appears normal. Lymph nodes: There are no enlarged lymph nodes. Urinary bladder: The bladder is distended and demonstrates no focal contour abnormality. Reproductive: The uterus is surgically absent. Mild soft tissue prominence of the right vaginal cuff measuring approximately 2.4 x 2.8 x 1.9 cm (axial series 5, image 813). Bones/joints: Grade 1 anterolisthesis L3 on L4 by approximately 5 mm. Degenerative disc disease at L4-5. Soft tissues: Unremarkable. IMPRESSION: 1. Findings consistent with acute sigmoid diverticulitis. Local free air identified consistent with small perforation. No fluid identified adjacent to the sigmoid, but minimal fluid identified in the dependent portion of the pelvis. No loculated well formed collection/abscess identified. 2. Mild soft tissue prominence of the right vaginal cuff measuring approximately 2.4 x 2.8 x 1.9 cm. No comparisons available. Recommend correlation with surgical history and any available outside imaging. Dictated and Authenticated by: Adrian Dick MD. Ordering:NAVJOT Wolfe MD
[2021-07-12] MEDS: CIPROFLOXACIN 400 MG/200 ML BAG 200 MG IVPB (11:59)
[2021-07-12 12:19] LABS: Source Nasopharynx
[2021-07-12] MEDS: Pantoprazole 40 MG VIAL IVP (12:38)
[2021-07-12] MEDS: metroNIDAZOLE 500 MG/100 ML BAG 100 MG IVPB ×2 (13:27→21:36)
[2021-07-12 13:54] LABS: COVID-19 PCR Negative (Negative)
--- NOTE | 2021-07-12 14:45 | HPE_ITS ---
Date of service: 07/12/21 Time of Service: 14:46 Assessment and Plan Assessment and plan (1) Acute diverticulitis: Status: Acute Assessment and plan: -Recommend IV antibiotics for 24-48 hrs, with PO abx at time of D/C. Clinically appears well. -Clear liquids/full liquids while discomfort present, ensure supplements advised. -PO home meds ordered -PRN analgesics as written -Frequent ambulation encouraged -Follow up colonoscopy in 6-8 weeks (2) Cystocele: Status: Acute (3) Colorectal polyps: Status: Acute (4) Family history of breast cancer: Status: Acute (5) Acquired absence of both cervix and uterus: Status: Acute History of Present Illness Narrative: 61 year old female with no significant past medical history who presented to the ER complaining of left sided abdominal pain x4 days. She was recently treated for UTI and was on antibiotics but has not noticed much improvement. She underwent basic laboratory studies in the ER and CT scan of the abdomen and pelvis revealing acute sigmoid diverticulitis with small perforation and pericolic inflammation.No evidence of abscess formation. Her last colonoscopy was 04/2019 and negative aside from tubular adenoma which was removed. Denies fevers, reports malaise/fatigue and decreased appetite as a result of her discomfort. Review of Systems Constitutional Constitutional: Reports system reviewed and no additional complaints, except as documented, Reports chills, Reports fatigue, Denies fever(s), Reports malaise and Reports poor appetite Cardiovascular Cardiovascular: Denies chest pain, Denies rapid heart rate and Denies dyspnea Respiratory Respiratory: Denies dyspnea Gastrointestinal Gastrointestinal: Reports abdominal pain, Denies constipation, Reports cramping, Denies diarrhea, Reports nausea and Denies vomiting Genitourinary Genitourinary: Denies dysuria, Reports prolapse symptoms (has been seen for cystocele), Denies urinary hesitancy and Denies urinary urgency Musculoskeletal Musculoskeletal: Reports system reviewed and no additional complaints, except as documented Endocrine Endocrine: Reports fatigue PFSH All Active Problems (Updated 05/18/19 @ 06:43 by Callie Nowak RN) Acute diverticulitis (Acute) Bowel perforation (Acute) GINI (stress urinary incontinence, female) (Acute) Cystocele (Acute) Colorectal polyps (Acute ~05/14/19) Family history of breast cancer (Acute 03/22/17) Mother Acquired absence of both cervix and uterus (Acute 02/26/16) MERRICK/BSO age 41 for Endometriosis and fibroid Medical History (Updated 07/12/21 @ 13:38 by Yaneth Hernandez DO) Endometriosis Uterine leiomyoma Surgical History (Updated 05/18/19 @ 06:43 by Callie Nowak RN) Abdominal hysterectomy 2000 History of colonoscopy (~05/14/19) 05/03 - tubular adenoma 2006- nl Oophrectomy, Both 2000 Family History Mother Breast cancer at 50 Other Family history of breast cancer Personal history of malignant neoplasm Social History (Updated 04/27/19 @ 10:16 by MICHAEL Grove) Smoking/Tobacco Use Status: Never Smoking risk assessment performed?: Yes Alcohol Intake: current Alcohol Intake frequency: holidays/special occasions only Alcohol type: wine Drug use: Never Substance use type: does not use Details: takes cbd oil Do you feel safe at home: Yes Do you feel safe in your relationship?: Yes Female Reproductive History Menstrual Menopause type: surgical History History 2 Para 3 Hx # Term Pregnancies Multiple births Hx # Pregnancies Ectopic pregnancies AB induced Hx Number of Living Children AB spontaneous Meds Allergies and Home Medications Allergies Allergy/AdvReac Type Severity Reaction Status Date / Time No Known Allergies Allergy Verified 07/12/21 10:00 Home Medications Medication Instructions Recorded Confirmed Type aspirin 81 mg tablet,delayed 81 mg PO DAILY 04/27/19 07/12/21 History release coenzyme [id number] 100 mg-100 1 cap PO DAILY 04/27/19 07/12/21 History unit capsule magnesium gluconate 27 mg 27 mg PO BID 04/27/19 07/12/21 History magnesium (500 mg) tablet (Mag-G) lactobacillus combination no.8 3 3,000 mmu cells PO DAILY 02/04/20 07/12/21 History billion cell capsule (Adult Probiotic) vitamin B complex (B 1 tab PO DAILY 03/06/21 07/12/21 History Complex-Vitamin B12) potassium chloride 10 mEq 10 meq PO DAILY 03/23/21 07/12/21 History capsule,extended release Exam Narrative Exam Narrative: Clinically well-appearing with at bedside Const General: cooperative, healthy appearing, comfortable and no acute distress Nutritional Appearance: average body habitus Orientation: alert, awake and oriented x3 Resp Effort & Inspection: normal respiratory effort, no audible wheezes, no cough and no respiratory distress Cardio Rate: regular rate Rhythm: regular rhythm GI Inspection: normal to inspection and non-distended Palpation: soft, not firm, no guarding and tender in the LLQ Percussion: normal to percussion Extrem General: normal to inspection, full ROM and no edema Results Labs Result diagrams: 07/12/21 10:00 07/12/21 10:00 Labs: Laboratory Results - last 24 hr 07/12/21 07/12/21 07/12/21 10:00 10:00 10:15 WBC 13.01 H RBC 4.77 Hgb 13.5 Hct 41.0 MCV 86.0 MCH 28.3 MCHC 32.9 RDW 13.3 Plt Count 214 MPV 9.9 Immature Gran % 0.6 Neutrophils % 80.8 Lymphocytes % 11.5 Monocytes % 6.9 Eosinophils % 0.0 Basophils % 0.2 Nucleated RBC % 0 Absolute Neutrophils 10.51 H Absolute Lymphocytes 1.50 Absolute Monocytes 0.90 H Absolute Eosinophils 0.00 Absolute Basophils 0.03 Sodium 138 Potassium 3.6 Chloride 101 Carbon Dioxide 25.5 Anion Gap 11.5 H BUN 14 Creatinine 0.9 Estimated GFR/1.73 m2 >= 60.00 Glucose 142 H Calcium 9.4 Total Bilirubin 0.8 AST 16 ALT 25 Alkaline Phosphatase 81 Total Protein 7.7 Albumin 3.5 Lipase 32 Urine Color Yellow Urine Clarity Clear Urine pH 6.0 Ur Specific Enterprise >= 1.030 H Urine Protein 30 H Urine Ketones 40 H Urine Blood Negative Urine Nitrite Negative Urine Bilirubin Small H Urine Urobilinogen 0.2 Ur Leukocyte Esterase Negative Urine RBC 0-2 Urine WBC Negative Ur Epithelial Cells Few Urine Crystals Negative Urine Bacteria Negative Urine Casts 0-2 Hyaline Urine Mucus Trace Ur Culture Indicated? No Urine Glucose Negative COVID-19 Source SARS-CoV-2 (PCR) 07/12/21 12:08 WBC RBC Hgb Hct MCV MCH MCHC RDW Plt Count MPV Immature Gran % Neutrophils % Lymphocytes % Monocytes % Eosinophils % Basophils % Nucleated RBC % Absolute Neutrophils Absolute Lymphocytes Absolute Monocytes Absolute Eosinophils Absolute Basophils Sodium Potassium Chloride Carbon Dioxide Anion Gap BUN Creatinine Estimated GFR/1.73 m2 Glucose Calcium Total Bilirubin AST ALT Alkaline Phosphatase Total Protein Albumin Lipase Urine Color Urine Clarity Urine pH Ur Specific Enterprise Urine Protein Urine Ketones Urine Blood Urine Nitrite Urine Bilirubin Urine Urobilinogen Ur Leukocyte Esterase Urine RBC Urine WBC Ur Epithelial Cells Urine Crystals Urine Bacteria Urine Casts Urine Mucus Ur Culture Indicated? Urine Glucose COVID-19 Source Nasopharynx SARS-CoV-2 (PCR) Negative Last Vital Signs Temp 96.8 F L 07/12/21 14:20 Pulse 76 07/12/21 14:20 Resp 18 07/12/21 14:20 BP 122/76 07/12/21 14:20 Pulse Ox 96 07/12/21 14:20 PAWSS Have you Been Recently Intoxicated or Drunk Within the Last 30 days?: No Have you Ever Experienced Previous Episodes of Alcohol Withdrawal?: No Have you ever Experienced Withdrawal Seizures?: No Have you ever Experienced Delirium Tremens(DT)s?: No Have you ever undergone Alcohol Rehabilitation Treatment (i.e, inpt ot outp atient treatment programs)?: No Have you ever Experienced Blackouts?: No Have you ever Combined Alcohol with other Downers within the last 90 days?: No Have you ever Combined Alcohol with any other Substance of Abuse during the last 90 days?: No Positive Blood Alcohol level on Presentation? [PCS.BAL]: No Evidence of Increased Autonomic Activity (i.e. HR>120, tremor, sweating, a gitation, nausea)?: No Result: 0
[2021-07-12] MEDS: Magnesium Gluconate 500 MG TAB PO (21:36)
[2021-07-13] MEDS: CIPROFLOXACIN 400 MG/200 ML BAG 200 MG IVPB ×2 (00:27→12:08)
[2021-07-13] MEDS: metroNIDAZOLE 500 MG/100 ML BAG 100 MG IVPB ×2 (06:00→13:24)
[2021-07-13 07:00] LABS: Abs Immature Grans 0.03 10^3/uL (0.0-0.06); Absolute Basophil Count 0.01 10^3/uL (0.0-0.2); Absolute Lymphocyte Count 0.91 10^3/uL (1.2-3.4); Absolute Monocyte Count 0.58 10^3/uL (0.1-0.8); Basophils % 0.1; HCT 37.1 % (36.0-46.0); HGB 12.1 g/dL (11.2-15.7); Immature Grans % 0.4; Lymphocytes % 12.9; MCH 28.1 pg (27.0-33.0); MCHC 32.6 % (32.0-36.0); MCV 86.3 fL (80-95); MPV 10.3 fL (8.0-11.0); Monocytes % 8.2; Neutrophils % 78.4; Nucleated RBC 0 %; Platelet Count 171 10^3/uL (130-400); RDW 13.5 % (11.7-14.6); RDW-SD 42.5 fL; WBC 7.04 10^3/uL (4.4-10.8)
[2021-07-13 07:03] LABS: Absolute Neutrophil Count 5.52 10^3/uL (1.2-6.7)
[2021-07-13 07:22] LABS: ALT 18 U/L (14-59); AST 11 U/L (15-37); Albumin 2.9 g/dL (3.4-5.0); Alkaline Phosphatase 68 U/L (46-116); Anion Gap 10.5 mmol/L (3-11); BUN 10 mg/dL (7-18); Bilirubin, Total 0.6 mg/dL (0.2-1.0); CO2 25.5 mmol/L (21.0-32.0); CREATININE 0.7 mg/dL (0.55-1.02); Calcium 8.6 mg/dL (8.5-10.1); Chloride 105 mmol/L (98-107); Glucose 92 mg/dL (74-106); Magnesium 2.1 mg/dL (1.8-2.4); Potassium 3.7 mmol/L (3.5-5.1); Sodium 141 mmol/L (136-145); Total Protein 6.7 g/dL (6.4-8.2)
[2021-07-13] MEDS: Lactated Ringers 1,000 ML 75 ML IV (07:44)
[2021-07-13] MEDS: Potassium Chloride 10 MEQ CAPCR PO (07:44)
[2021-07-13] MEDS: Magnesium Gluconate 500 MG TAB PO (07:44)
[2021-07-13] MEDS: Normal Saline Flush 10 ML SYR IVP ×3 (07:44→13:26)
[2021-07-13 08:02] VITALS: BP 117/80; PULSE 79; RESP 17; TEMP 37; O2SAT 95
[2021-07-13 09:32] VITALS: RESP 17; O2SAT 95
--- NOTE | 2021-07-13 10:54 | W.NUTCONSULT ---
Date of service: 07/13/21 Time of Service: 10:55 Nutritional Consult ASSESSMENT: Met with Minal today. She is feeling much better, tolerating liquids and soft foods. S/p acute diverticulitis with bowel perforation. Expects to go home today. PMH: obesity, diverticuliosis. INTERVENTION: Provided education on low fiber diet for next week s/p acute diverticulitis. Encouraged her to follow up with PCP/surgery for diet advancement. Provided written materials and contact information. MONITORING AND EVALUATION: po intake, labs, weight. Time Spent in Nutritional Counseling and Treatment: 15
[2021-07-13] MEDS: Pantoprazole 40 MG VIAL IVP (12:04)
[2021-07-13] MEDS: Normal Saline 500 ML 30 ML IV (13:23)
--- NOTE | 2021-07-13 14:35 | W.PM.PROGNOT ---
Date of Service Date of service: 07/13/21 Time of Service: 14:36 Assessment and Plan Assessment and plan (1) Acute diverticulitis: Status: Acute Assessment and plan: -Clinically appears well. -low fiber diet -PO home meds ordered -PRN analgesics as written -Frequent ambulation encouraged Will d/c home on antibiotics for total of 14 days Add probiotics Follow up in the office in 2 weeks, earlier if symptoms recurr (2) Cystocele: Status: Acute (3) Colorectal polyps: Status: Acute (4) Family history of breast cancer: Status: Acute (5) Acquired absence of both cervix and uterus: Status: Acute Subjective Subjective Interval history since last seen: Ms Meléndez is doing well. Her pain has resolved. She is eating clears without any issue. She denies N/V. She has not had any fevers Exam Const General: healthy appearing, comfortable and no acute distress HENMT Head: normocephalic and atraumatic Resp Effort & Inspection: normal respiratory effort Auscultation: clear to auscultation bilaterally Cardio Rate: regular rate Rhythm: regular rhythm GI Inspection: normal to inspection Palpation: soft and nontender Auscultation: normal bowel sounds Objective Last Vital Signs Temp 98.6 F 07/13/21 08:02 Pulse 79 07/13/21 08:02 Resp 17 07/13/21 09:32 BP 117/80 07/13/21 08:02 Pulse Ox 95 07/13/21 09:32 Laboratory Results - last 24 hr 07/13/21 07/13/21 06:05 06:05 WBC 7.04 D RBC 4.30 Hgb 12.1 Hct 37.1 MCV 86.3 MCH 28.1 MCHC 32.6 RDW 13.5 Plt Count 171 MPV 10.3 Immature Gran % 0.4 Neutrophils % 78.4 Lymphocytes % 12.9 Monocytes % 8.2 Eosinophils % 0.0 Basophils % 0.1 Nucleated RBC % 0 Absolute Neutrophils 5.52 Absolute Lymphocytes 0.91 L Absolute Monocytes 0.58 Absolute Eosinophils 0.00 Absolute Basophils 0.01 Sodium 141 Potassium 3.7 Chloride 105 Carbon Dioxide 25.5 Anion Gap 10.5 BUN 10 Creatinine 0.7 Estimated GFR/1.73 m2 >= 60.00 Glucose 92 D Calcium 8.6 Magnesium 2.1 Total Bilirubin 0.6 AST 11 L ALT 18 Alkaline Phosphatase 68 Total Protein 6.7 Albumin 2.9 L PAWSS Have you Been Recently Intoxicated or Drunk Within the Last 30 days?: No Have you Ever Experienced Previous Episodes of Alcohol Withdrawal?: No Have you ever Experienced Withdrawal Seizures?: No Have you ever Experienced Delirium Tremens(DT)s?: No Have you ever undergone Alcohol Rehabilitation Treatment (i.e, inpt ot outpatient treatment programs)?: No Have you ever Experienced Blackouts?: No Have you ever Combined Alcohol with other Downers within the last 90 days?: No Have you ever Combined Alcohol with any other Substance of Abuse during the last 90 days?: No Positive Blood Alcohol level on Presentation? [PCS.BAL]: No Evidence of Increased Autonomic Activity (i.e. HR>120, tremor, sweating, agitation, nausea)?: No Result: 0
--- NOTE | 2021-07-13 14:42 | W.PM.DS.N ---
Date of service: 07/13/21 Time of Service: 14:42 DS: Diagnosis Discharge Diagnosis (1) Acute diverticulitis: Status: Acute (2) Cystocele: Status: Acute (3) Colorectal polyps: Status: Acute (4) Family history of breast cancer: Status: Acute (5) Acquired absence of both cervix and uterus: Status: Acute Discharge Plan Disposition Patient Disposition: HOME Condition: Stable Discharge Details Reason For Visit: Diverticulitis Admit Date/Time: 07/12/21 11:52 Admit Provider: Abby Sanchse Attending Provider: Abby Sanches Primary Care Provider: Leigh Rodas Hospital Course Hospital Course: Mrs Meléndez is a pleasant 61 year old female who was admitted yesterday morning with diverticulitis and microperforation. She is doing well. She has no pain. She is tolerating a diet. She has had > 24 hours of IV antibiotics. She will be discharged home on po antibiotics and a probiotic Had resent colonoscopy. Should follow up 5 years after her last colonoscopy Home Meds and New Rx's Prescriptions: New amoxicillin-pot clavulanate [Augmentin] 500-125 mg tablet 1 tab PO TID 12 Days Qty: 36 0RF Continued magnesium gluconate [Mag-G] 27 mg magnesium (500 mg) tablet 27 mg PO BID 0RF coenzyme [id number] 100-100 mg-unit capsule 1 cap PO DAILY 0RF aspirin 81 mg tablet,delayed release (DR/EC) 81 mg PO DAILY 0RF Adult Probiotic 3 billion cell capsule 3,000 mmu cells PO DAILY 0RF Rx Instructions: administer with a meal vitamin B complex [B Complex-Vitamin B12] Tablet 1 tab PO DAILY 0RF potassium chloride 10 mEq capsule, extended release 10 meq PO DAILY 0RF Discharge Instructions Instructions: Diverticulitis (DC), Low Fiber Diet (DC) Additional Instructions: Activity at Home after surgery: 1.As tolerated Diet, Nutrition, & wound healin. Low fiber diet Pain Medications: 1. Tylenol 650mg every 6 hours as needed and Ibuprofen 600 mg every 6 hours as needed. You may alternate between the 2 medications every 3 hours For Constipation: 1. Take Milk of Magnesia or MiraLax as needed for constipation Please call our office if you develop: 1. Fevers >101.5 2. Nausea or Vomiting 3. Worsening pain 4. Redness and thick discharge from the wounds If after hours please call the Hospital at and ask to speak to the on-call surgeon Stand Alone Forms: Nursing Discharge Form Activity:: Activity as Tolerated Equipment/Supplies:: No Equipment Needed Diet:: low fiber diet Discharge Orders Discharge Orders: Discharge Order (Routine); Ordered 07/13/21 Ordered By: Kalpana Stern DS: Summary Time Spent with Patient providing and/or coordinating discharge services: Less than 30 minutes Status at Discharge Functional status at discharge: independent ambulation Overall status at discharge: patient is back to baseline Mental Status: mental status grossly normal Speech and Movement: speech and movement normal Mood: congruent mood Affect: normal affect Exam Psych Mental Status: mental status grossly normal Speech and Movement: speech and movement normal Mood: congruent mood Affect: normal affect DS: Data Vitals/I&O Vitals and I&O: Vital Signs Temperature 98.6 F 07/13/21 08:02 Temperature Source Tympanic 07/13/21 08:02 Pulse 79 07/13/21 08:02 Pulse Rhythm Regular 07/13/21 07:15 Respiratory Rate 17 07/13/21 09:32 Respiratory Effort Non-Labored 07/13/21 07:15 Respiratory Depth Normal 07/13/21 07:15 Respiratory Pattern Normal 07/13/21 07:15 Blood Pressure 117/80 07/13/21 08:02 Blood Pressure Mean 82 07/12/21 12:30 Blood Pressure Position Sitting 07/12/21 09:55 Pulse Oximetry 95 07/13/21 09:32 Oxygen Delivery Method Room Air 07/13/21 09:32 Oxygen Flow Rate 0 07/13/21 09:32 Pain Level 0 07/13/21 08:02 Intake & Output 07/12/21 07/13/21 07/13/21 23:59 11:59 23:59 Intake Total 1100 / 2210 585 / 1240 655 / 1240 Output Total 250 / 250 Balance 1100 / 2210 335 / 990 655 / 990 Intake: IV 500 / 1610 405 / 700 295 / 700 Oral 600 / 600 180 / 540 360 / 540 Output: Urine 250 / 250 Other: Urine Color Yellow Urine Appearance Clear Urine Odor None Comment pt reports voiding several times om overnight shift. pT stated that she had peed several times through out the day. Stool Size Moderate Voiding Methods Toilet Toilet Data Completed and Pending Labs on day of discharge: Labs from last 24 hours 07/13/21 07/13/21 06:05 06:05 WBC 7.04 D RBC 4.30 Hgb 12.1 Hct 37.1 MCV 86.3 MCH 28.1 MCHC 32.6 RDW 13.5 Plt Count 171 MPV 10.3 Immature Gran % 0.4 Neutrophils % 78.4 Lymphocytes % 12.9 Monocytes % 8.2 Eosinophils % 0.0 Basophils % 0.1 Nucleated RBC % 0 Absolute Neutrophils 5.52 Absolute Lymphocytes 0.91 L Absolute Monocytes 0.58 Absolute Eosinophils 0.00 Absolute Basophils 0.01 Sodium 141 Potassium 3.7 Chloride 105 Carbon Dioxide 25.5 Anion Gap 10.5 BUN 10 Creatinine 0.7 Estimated GFR/1.73 m2 >= 60.00 Glucose 92 D Calcium 8.6 Magnesium 2.1 Total Bilirubin 0.6 AST 11 L ALT 18 Alkaline Phosphatase 68 Total Protein 6.7 Albumin 2.9 L PFSH All Active Problems Acute diverticulitis (Acute) Bowel perforation (Acute) GINI (stress urinary incontinence, female) (Acute) Cystocele (Acute) Colorectal polyps (Acute ~05/14/19) Family history of breast cancer (Acute 03/22/17) Mother Acquired absence of both cervix and uterus (Acute 02/26/16) MERRICK/BSO age 41 for Endometriosis and fibroid Medical History Endometriosis Uterine leiomyoma Surgical History Abdominal hysterectomy 2000 History of colonoscopy (~05/14/19) 05/03 - tubular adenoma 2006- nl Oophrectomy, Both 2000 Family History Mother Breast cancer at 50 Other Family history of breast cancer Personal history of malignant neoplasm Social History Smoking/Tobacco Use Status: Never Smoking risk assessment performed?: Yes Alcohol Intake: current Alcohol Intake frequency: holidays/special occasions only Alcohol type: wine Drug use: Never Substance use type: does not use Details: takes cbd oil Do you feel safe at home: Yes Do you feel safe in your relationship?: Yes Female Reproductive History Menstrual Menopause type: surgical History History 2 Para 3 Hx # Term Pregnancies Multiple births Hx # Pregnancies Ectopic pregnancies AB induced Hx Number of Living Children AB spontaneous
--- NOTE | 2021-07-13 16:55 | PDOC.CMDIS ---
- If Service Date Differs Date of service: 07/13/21 Time of Service: 16:55 LACE Index Scoring Tool - Questions: Length of Stay (in days): 1 Acuity (Admit via E.D.?): Yes E.D. Visits: 1 - Answers: Total Score: 5 Risk of Readmission: Low Risk Care Management Discharge Reason for Hospitalization: Diverticulitis Discharge Plan: Minal will return home on oral antibiotics, no additional services needed at this time. She will follow up with her PCP and transport via private vehicle with family. Patient/Family Education Needs: Review discharge instructions, discuss Ask Me Three.
== END 2021-07-13 15:15 | disposition home or self-care (01) | DRG 392 ==
LOC: ER 12:22 → MS 12:45
PROVIDERS: Admitting Provider Surgery; Emergency Provider Physician Assistant; PCP Naturopath; Visit Provider Surgery
DX: K57.20 Diverticulitis of large intestine with perforation and abscess without bleeding (principal); R91.1 Solitary pulmonary nodule; Z86.010 Personal history of colon polyps; N81.10 Cystocele, unspecified; N39.3 Stress incontinence (female) (male); Z80.3 Family history of malignant neoplasm of breast
CPT/HCPCS: 36415; 80053; 83690; 87635; 96361; 96365; 96367; 96375; 99285; 74177; 81003; 81015; 83735; 85025; J0131; J0744; J2405; J3490

== ENCOUNTER 2021-07-29 01:53 | Outpatient (CLI) | payer OTHER, SELFPAY ==
--- NOTE | 2021-07-29 06:15 | DI.CT_ITS ---
Exam(s) CT ABDOMEN PELVIS W EXAM: CT ABDOMEN PELVIS W CLINICAL HISTORY: increasing LLQ pain, ? abscess,ACUTE DIVERTICULITIS,K57.92. TECHNIQUE: Imaging Protocol: Axial computed tomography images with coronal and sagittal reformatted images were created and reviewed CONTRAST MATERIAL: Intravenous: Omnipaque 100cc Oral: Oral contrast was administered for bowel opacification. COMPARISON: CT CT ABDOMEN PELVIS W from 07/12/2021 FINDINGS: VISUALIZED LUNG BASES: Visualized lung bases are clear and there are no pleural effusions. Previousl y described bilateral lung nodules are not in the field of view of today's study.. ABDOMEN: There is no ascites. LIVER: There are no focal hepatic lesions evident. No evidence of intrahepatic abscess nor air withi n the portal venous system GALLBLADDER/BILIARY: No obvious gallbladder pathology. CBD is not dilated. PANCREAS: No evidence of pancreatic mass nor dilatation of the pancreatic duct. SPLEEN: Spleen is not enlarged. No obvious intrasplenic lesions. Splenic and portal veins are paten t. There is no gas in the superior mesenteric vein and portal vein. ADRENALS: There are no significant adrenal masses. KIDNEYS:Again noted is the previously described possible small mass in the lateral cortex of the righ t kidney which require further evaluation to rule out malignancy. This measures approximately 1.2 x 1.2 cm. There is a tiny 3 millimeters cyst in the medial cortex of the right kidney. No significant focal findings in the opposite-left kidney. No hydronephrosis nor hydroureter.. ABDOMINAL AORTA: Abdominal aorta is not enlarged. LYMPH NODES:There is no retroperitoneal nor paraaortic adenopathy. ABDOMINAL WALL: No evidence of significant anterior abdominal wall nor inguinal hernia. GI: No evidence of small-bowel obstruction PELVIS: GI: No evidence of appendicitis.The amount of inflammatory streaking around the affected area of the sigmoid has decreased but there is still free air in this region above the affected bowel loop consis tent with perforation. In addition, there is a 2.4 x 1.6 by 1.0 cm air collection which is in contin uity with this superior aspect of the sigmoid at this level. There is no fluid level therein. Some streaking is seen in the fat around this finding. LYMPH NODES: There is no intrapelvic nor inguinal adenopathy. REPRODUCTIVE: Uterus is again noted be surgically absent. No adnexal masses. No free fluid in the m ost dependent aspect of the pelvis URINARY BLADDER: No mass nor calculi nor gas therein. OSSEOUS: No significant osseous lesions. No fractures. Mild degenerative anterolisthesis L3 upon L4. IMPRESSION: 1. Compared to the prior CT scan of 07/12/2021 there is presently less streaking around the affected area of acute diverticulitis in the sigmoid. However, there is still adjacent free air and there is also a 24 x 16 x 10 millimeter focus of free air just superior to the sigmoid at this level which is in communication with the sigmoid wall. Although there is no fluid within this air collection, this is essentially a form of ???dry abscess???. Continued close follow-up is recommended. 2. There is no gas within the portal venous system and there is no evidence of hepatic abscess. Ther e is also no evidence of gas within the urinary bladder to suggest fistulous communication. 3. Again noted is a previously described 12 x 12 millimeter nodule in the lateral cortex of the right kidney. This may be suspicious for neoplasm. Recommend follow-up MRI. 4. Other findings as above RADIATION DOSE DELIVERED: 1,192.67mGy.cm Total DLP DATA REPOSITORY: All CT scans at this facility are submitted to the National Radiology Data Registry (NRDR) Dose Index Registry (DIR) with the [employer] (A[employer]). RADIATION OPTIMIZATION: All CT scans at this facility use at least one of these dose optimization te chniques: automated exposure control; mA and/or kV adjustment per patient size (includes targeted exa ms where dose is matched to clinical indication); or iterative reconstruction.
[2021-07-29] MEDS: Breeza Beverage 473 ML BTL 976 ML PO (08:39)
[2021-07-29] MEDS: Omnipaque 350 MG/ML 50 ML BTL PO (08:39)
[2021-07-29] MEDS: Omnipaque 350 MG/ML 100 ML BTL IJ (09:01)
[2021-07-29] MEDS: Normal Saline Flush 10 ML SYR IVP (09:02)
== END 2021-07-29 02:13 ==
PROVIDERS: PCP Naturopath; Visit Provider Surgery
DX: K57.92 Diverticulitis of intestine, part unspecified, without perforation or abscess without bleeding (principal); N28.9 Disorder of kidney and ureter, unspecified
CPT/HCPCS: 74177; J3490; Q9967

== ENCOUNTER → 2021-09-21 00:31 | Outpatient (CLI) | payer OTHER, SELFPAY ==
--- NOTE | 2021-09-21 09:45 | DI.MRI_ITS ---
Exam(s) MR ABDOMEN WO/W EXAM: MR ABDOMEN WO/W CLINICAL HISTORY: ABNL FINDINGS ON DIAGNOSTIC IMAGING OF RT KIDNEY, R93.421, R93.5 TECHNIQUE: Multiplanar multisequence MRI of the Abdomen was performed. CONTRAST MATERIAL: IV Contrast: 18 mL of Dotarem contrast administered. COMPARISON: US US ABDOMEN from 01/26/[address] ABDOMEN PELVIS W from 07/12/[address] ABDOMEN PELVIS W from 07/29/2021 FINDINGS: Liver: Unremarkable. Pancreas: Unremarkable. Gallbladderand Bile Ducts: Unremarkable. Adrenals: Unremarkable. Kidneys: 13 x 14 x 11 millimeter high T2 signal mass laterally in mid right kidney. It shows contras t enhancement similar to renal parenchyma. Additional tiny cyst is seen near the lower pole of the r ight kidney. No additional masses. Spleen: Unremarkable. Aorta: Unremarkable. Soft Tissues: Unremarkable. Bone: Degenerative disc changes and scoliosis. Lymph Nodes: Unremarkable. IMPRESSION: Fourteen millimeter enhancing mass mid right kidney. Biopsy recommended. DATA REPOSITORY:
[2021-09-21] MEDS: Gadoterate meglumine 20 ML VIAL 18 ML IVP (09:52)
== END ==
PROVIDERS: PCP Naturopath; Visit Provider Naturopath
DX: N28.89 Other specified disorders of kidney and ureter (principal); R93.5 Abnormal findings on diagnostic imaging of other abdominal regions, including retroperitoneum; R93.421 Abnormal radiologic findings on diagnostic imaging of right kidney
CPT/HCPCS: 74183

== ENCOUNTER → 2022-04-30 14:32 | Outpatient (CLI) | payer OTHER, SELFPAY ==
--- NOTE | 2022-04-30 | DI.RAD_ITS ---
Exam(s) XR SACRUM COCCYX EXAM: XR SACRUM COCCYX CLINICAL HISTORY: FALL INJURY W19.XXXA. TECHNIQUE: 2D digital imaging was performed. COMPARISON: CT CT ABDOMEN PELVIS W from 07/29/2021 FINDINGS: 3 views No obvious sacral fracture. SI joints appear unremarkable. There is a asymmetrically partial sacral ized lumbosacral vertebra which is probably a transitional vertebra. IMPRESSION: DATA REPOSITORY: RADIATION DOSE DELIVERED:
== END ==
PROVIDERS: PCP Naturopath; Visit Provider Naturopath
DX: M53.3 Sacrococcygeal disorders, not elsewhere classified (principal); W19.XXXA Unspecified fall, initial encounter
CPT/HCPCS: 72220

== ENCOUNTER 2022-06-07 11:06 | Emergency (ER) | payer OTHER, SELFPAY ==
[2022-06-07 11:09] VITALS: BP 148/106; PULSE 88; RESP 16; TEMP 36.8; O2SAT 99
--- NOTE | 2022-06-07 11:28 | ED.GENADUL_ITS ---
Discharge Plan Disposition Patient Disposition: Home Condition: Improving Discharge Details Clinical Impression: Diverticulitis of sigmoid colon Primary Care Provider: Leigh Rodsa ED Provider: Ayaz Ramos Home Meds and New Rx's Prescriptions: New amoxicillin-pot clavulanate 875-125 mg tablet 1 tab PO BID 10 Days Qty: 20 0RF Continued magnesium gluconate [Mag-G] 27 mg magnesium (500 mg) tablet 27 mg PO BID coenzyme [id number] E 100-100 mg-unit capsule 1 cap PO DAILY aspirin 81 mg tablet,delayed release (DR/EC) 81 mg PO DAILY Adult Probiotic 3 billion cell capsule 3,000 mmu cells PO DAILY Rx Instructions: administer with a meal vitamin B complex [B Complex-Vitamin B12] Tablet 1 tab PO DAILY potassium chloride 10 mEq capsule, extended release 10 meq PO DAILY Discharge Instructions Instructions: Diverticulitis (ED), Diverticulitis Diet (ED) Additional Instructions: Please take your probiotic in between the doses of antibiotics. Take Augmentin as prescribed twice daily until finished. Tylenol and/or ibuprofen as needed for pain. Return to the emergency room for any acute concerns Medical Decision Making This is a 62-year-old female states has had previous kidney stones. She states she fell and struck her back in the end of March but seemed to improve. She now presents with the abrupt onset of left flank pain early this morning it seems to radiate at times to her abdomen. She is minimally improved with ibuprofen at home. She arrives to the ER slightly hypertensive and in moderate distress. Her exam reveals both left flank and left abdomen tenderness. Most concerning for renal colic, would consider colitis or diverticulitis.. Patient IV access established, was given parenteral analgesia and fluids, referred for laboratory testing and CT imaging. CT reveals mild diverticulitis at the junction of the descending and sigmoid colon. Please see the formal report. Patient's urinalysis does not have evidence of blood. CBC is reassuring as are chemistries. Counseled her as to the use of Augmentin to treat her diverticulitis. She is stable and appropriate for outpatient management. HPI General Mode of arrival: ambulatory . Date/Time Provider Initiated Documentation: 06/07/22 11:08 . Limitations to Documentation: no limitations . Information obtained by: patient . History of Present Illness 62 year old F presents to the emergency department with the chief complaint of Left flank pain x1day, described as moderate, Quality is described as constant, and is localized to the back and left. Patient reports no radiation. Patient started experiencing this hour(s) and it has been constant. No relieving factors improve symptom(s), No exacerbating factors reported . Patient notes denies chest pain, fever/chills, loss of appetite and shortness of breath. Patient did receive the following treatments prior to arrival, NSAID Related Data Home Medications Medication Instructions Recorded Confirmed aspirin 81 mg tablet,delayed 81 mg PO DAILY 04/27/19 06/07/22 release coenzyme [id number] E 100 mg-100 1 cap PO DAILY 04/27/19 06/07/22 unit capsule magnesium gluconate 27 mg 27 mg PO BID 04/27/19 06/07/22 magnesium (500 mg) tablet (Mag-G) lactobacillus combination no.8 3 3,000 mmu cells PO DAILY 02/04/20 06/07/22 billion cell capsule (Adult Probiotic) vitamin B complex (B 1 tab PO DAILY 03/06/21 06/07/22 Complex-Vitamin B12 tablet) potassium chloride 10 mEq 10 meq PO DAILY 03/23/21 06/07/22 capsule,extended release amoxicillin 875 mg-potassium 1 tab PO BID 10 days #20 tabs 06/07/22 clavulanate 125 mg tablet Previous Rx's Medication Instructions Recorded amoxicillin 875 mg-potassium 1 tab PO BID 10 days #20 tabs 06/07/22 clavulanate 125 mg tablet Allergies Allergy/AdvReac Type Severity Reaction Status Date / Time No Known Allergies Allergy Verified 06/07/22 11:12 General Stated Complaint: FlankPain YANIQUE: 3 Review of Systems Narrative: No fever, chills, cough, vomiting. Has had kidney stones in the past. Notes a fall >1 month ago. 8 systems were reviewed and otherwise negative PFSH All Active Problems (Updated 06/07/22 @ 13:48 by Ayaz Ramos MD) Diverticulitis of sigmoid colon (Acute) Follow up (Acute) Acute diverticulitis (Acute) Bowel perforation (Acute) GINI (stress urinary incontinence, female) (Acute) Medical History Colorectal polyps (~05/14/19) Cystocele Endometriosis Family history of breast cancer (03/22/17) Mother Uterine leiomyoma Surgical History Abdominal hysterectomy 2000 Acquired absence of both cervix and uterus (02/26/16) MERRICK/BSO age 41 for Endometriosis and fibroid History of colonoscopy (~05/14/19) 05/03 - tubular adenoma 2006- nl Oophrectomy, Both 2000 Family History Mother Breast cancer at 50 Other Family history of breast cancer Personal history of malignant neoplasm Social History Smoking/Tobacco Use Status: Never Smoking risk assessment performed?: Yes Alcohol Intake: current Alcohol Intake frequency: holidays/special occasions only Alcohol type: wine Drug use: Never Substance use type: does not use Details: takes cbd oil Current gender identity: female Do you feel safe at home: Yes Do you feel safe in your relationship?: Yes Female Reproductive History Menstrual Menopause type: surgical History History 2 Para 3 Hx # Term Pregnancies Multiple births Hx # Pregnancies Ectopic pregnancies AB induced Hx Number of Living Children AB spontaneous Exam Narrative Exam Narrative: GEN: awake, alert, oriented 3. Pleasant, well groomed, interactive. HEAD: Normocephalic, atraumatic ENT: Mucous membranes moist, oropharynx unremarkable, External ear exam unremarkable EYES: PERRL, EOMI NECK: Full ROM, no RAJENDRA, no menigismus CHEST/RESP: Nontender, clear to auscultation bilateral, no wheeze/rhonchi/rales CARDIOVASCULAR: RRR, no murmur, rub kavon. 2+ Rad pulse bilateral ABDOMEN: Soft, tender left lower quadrant, no rebound or guarding, no mass. +Bowel sounds. Left flank tender to percussion. EXT: Full ROM, no edema, no rash Neuro: Grossly normal neurologic exam, conversant, interactive. Psych: Speech fluent, thoughts congruent, affect normal Course Vital Signs Vital signs: Vital Signs Temperature 36.8 C 06/07/22 11:09 Pulse 88 06/07/22 11:09 Respiratory Rate 16 06/07/22 11:09 Blood Pressure 148/106 H 06/07/22 11:09 Pulse Oximetry 99 06/07/22 11:09 Temperature 36.8 C 06/07/22 11:09 Temperature Source Temporal Artery Scan 06/07/22 11:09 Pulse 88 06/07/22 11:09 Respiratory Rate 16 06/07/22 11:09 Respiratory Effort 06/07/22 11:11 Blood Pressure 148/106 H 06/07/22 11:09 Blood Pressure Position Sitting 06/07/22 11:09 Pulse Oximetry 99 06/07/22 11:09 Oxygen Delivery Method Room Air 06/07/22 11:09 Oxygen Flow Rate 0 06/07/22 11:09 Pain Level 10 06/07/22 11:09 PAWSS Have you Been Recently Intoxicated or Drunk Within the Last 30 days?: No Have you Ever Experienced Previous Episodes of Alcohol Withdrawal?: No Have you ever Experienced Withdrawal Seizures?: No Have you ever Experienced Delirium Tremens(DT)s?: No Have you ever undergone Alcohol Rehabilitation Treatment (i.e, inpt ot outpatient treatment programs)?: No Have you ever Experienced Blackouts?: No Have you ever Combined Alcohol with other Downers within the last 90 days?: No Have you ever Combined Alcohol with any other Substance of Abuse during the last 90 days?: No Result: 0
[2022-06-07] MEDS: Normal Saline 1,000 ML 150 ML IV (12:03)
[2022-06-07] MEDS: ACETAMINOPHEN 1,000 MG/100 ML BTL 400 MG IVPB (12:04)
[2022-06-07 12:12] LABS: Abs Immature Grans 0.07 10^3/uL (0.0-0.06); Absolute Basophil Count 0.02 10^3/uL (0.0-0.2); Absolute Lymphocyte Count 1.39 10^3/uL (1.2-3.4); Absolute Monocyte Count 0.43 10^3/uL (0.1-0.8); Absolute Neutrophil Count 3.12 10^3/uL (1.2-6.7); Basophils % 0.4; HCT 39.8 % (36.0-46.0); HGB 12.9 g/dL (11.2-15.7); Immature Grans % 1.4; Lymphocytes % 27.6; MCH 27.7 pg (27.0-33.0); MCHC 32.4 % (32.0-36.0); MCV 86 fL (80-95); MPV 10.1 fL (8.0-11.0); Monocytes % 8.5; Neutrophils % 62.1; Platelet Count 224 10^3/uL (130-400); RBC 4.65 10^6/uL (3.93-5.22); RDW 13.2 % (11.7-14.6); RDW-SD 40.9 fL; WBC 5.03 10^3/uL (4.4-10.8)
[2022-06-07 12:33] LABS: ALT 21 U/L (14-59); AST 20 U/L (15-37); Albumin 3.7 g/dL (3.4-5.0); Alkaline Phosphatase 90 U/L (46-116); Anion Gap 7.5 mmol/L (3-11); BUN 14 mg/dL (7-18); Bilirubin, Total 0.4 mg/dL (0.2-1.0); CO2 26.5 mmol/L (21.0-32.0); CREATININE 0.7 mg/dL (0.55-1.02); Calcium 9.2 mg/dL (8.5-10.1); Chloride 105 mmol/L (98-107); Estimated GFR 97.72 (mL/min/1.73m2); Glucose 98 mg/dL (74-106); Potassium 3.8 mmol/L (3.5-5.1); Sodium 139 mmol/L (136-145); Total Protein 7.1 g/dL (6.4-8.2)
--- NOTE | 2022-06-07 12:50 | DI.CT_ITS ---
Exam(s) CT RENAL COLIC WO EXAM: CT RENAL COLIC WO CLINICAL HISTORY: L flank pain. TECHNIQUE: Imaging Protocol: Axial computed tomography images with coronal and sagittal reformatted images were created and reviewed. CONTRAST MATERIAL: Noncontrast COMPARISON: US US hernia from 01/26/2019 US US soft tiss abd wall/low back from 01/26/[address] ABDOMEN PELVIS W from 07/12/[address] ABDOMEN PELVIS W from 07/29/2021 FINDINGS: ABDOMEN: Lung Bases: Normal where visualized. Small hiatal hernia. Liver: Normal attenuation. No measurable mass. Gallbladder and biliary tract: No radiodense calculus or dilation. Pancreas: Normal density, no calcifications or inflammatory process. Spleen: Normal. Kidneys: Normal size, contour and axis. No radiodense stones or obstructive uropathy. Mild interval i ncrease in size of lateral right renal mass now 17 millimeters. Adrenal glands: No masses seen. Abdominal Aorta: Abdominal portion non-dilated. Lymph nodes: 13 x 18 millimeter aortocaval lymph node seen at the level of the lower pole of the righ t kidney. This is a appears unchanged from prior exams. PELVIS: Bladder: Symmetric distention, no gross wall thickening. No evidence of stones.No visible mass. Bowel: Diverticulosis lower descending and sigmoid colon. Mild inflammation at the junction of the d escending and sigmoid. No obstruction . Reproductive: Status post hysterectomy. Peritoneal cavity: No ascites or collection. Bones: Unremarkable for age.. IMPRESSION: Mild diverticulitis junction descending and sigmoid colon. Interval increase in size of right renal mass. This was shown to be enhancing on previous examinatio ns and has a suspicious appearance.. RADIATION DOSE DELIVERED: 1,071.14mGy.cm Total DLP DATA REPOSITORY: All CT scans at this facility are submitted to the National Radiology Data Registry (NRDR) Dose Index Registry (DIR) with the [employer] (A[employer]). RADIATION OPTIMIZATION: All CT scans at this facility use at least one of these dose optimization te chniques: automated exposure control; mA and/or kV adjustment per patient size (includes targeted exa ms where dose is matched to clinical indication); or iterative reconstruction.
[2022-06-07 13:09] LABS: Bilirubin Negative (Negative); Blood Negative (Negative); Clarity Clear (Clear); Glucose Negative (Negative); Ketones Negative (Negative); Leukocyte Esterase Negative (Negative); Nitrite Negative (Negative); Urobilinogen 0.2 EU/dL (Up TO 0.2)
[2022-06-07] MEDS: Amoxicillin 875/Clav. 125 TAB PO (14:21)
[2022-06-07 14:26] VITALS: BP 132/82; PULSE 81; RESP 16; O2SAT 98
== END 2022-06-07 14:28 | disposition home or self-care (01) ==
PROVIDERS: Emergency Provider Emergency Medicine; PCP Naturopath
DX: K57.32 Diverticulitis of large intestine without perforation or abscess without bleeding (principal); Z87.442 Personal history of urinary calculi
CPT/HCPCS: 80053; 96361; 96365; 99284; 74176; 81003; 85025; J0131

== ENCOUNTER 2022-10-05 11:15 | Outpatient (CLI) | payer OTHER, SELFPAY ==
[2022-10-05 10:13] LABS: Vitamin D 25 Total 29.6 ng/mL (30-100)
[2022-10-05 10:14] LABS: ALT 27 U/L (14-59); AST 21 U/L (15-37); Albumin 3.8 g/dL (3.4-5.0); Alkaline Phosphatase 81 U/L (46-116); BUN 21 mg/dL (7-18); Bilirubin, Total 0.3 mg/dL (0.2-1.0); CREATININE 0.8 mg/dL (0.55-1.02); Calcium 9.2 mg/dL (8.5-10.1); Chloride 103 mmol/L (98-107); Estimated GFR 83.26 (mL/min/1.73m2); Ferritin 26 ng/mL (8-252); Glucose 99 mg/dL (74-106); Magnesium 1.8 mg/dL (1.8-2.4); Potassium 4.3 mmol/L (3.5-5.1); Sodium 139 mmol/L (136-145); Total Protein 7.5 g/dL (6.4-8.2); Vitamin B12 473 pg/mL (193-986)
[2022-10-05 10:15] LABS: Folate > 20.0 ng/mL (8.6-20.0)
[2022-10-05 10:18] LABS: Iron 74 ug/dL (50-170); Total Iron Binding Capacity 399 ug/dL (250-450)
== END 2022-10-05 11:16 | disposition home or self-care (01) ==
LOC: LBO 11:17
PROVIDERS: PCP Naturopath; Visit Provider Naturopath
DX: R77.8 Other specified abnormalities of plasma proteins (principal); E55.9 Vitamin D deficiency, unspecified
CPT/HCPCS: 36415; 80053; 82306; 82607; 82728; 82746; 83540; 83550; 83735

== ENCOUNTER 2022-10-06 08:17 | Outpatient (CLI) | payer OTHER, SELFPAY ==
[2022-10-06 08:11] LABS: Abs Immature Grans 0.01 10^3/uL (0.0-0.06); Absolute Basophil Count 0.02 10^3/uL (0.0-0.2); Absolute Eosinophil Count 0.01 10^3/uL (0.0-0.7); Absolute Monocyte Count 0.51 10^3/uL (0.1-0.8); Absolute Neutrophil Count 3.32 10^3/uL (1.2-6.7); Basophils % 0.4; Eosinophils % 0.2; HCT 40.9 % (36.0-46.0); HGB 13.3 g/dL (11.2-15.7); Immature Grans % 0.2; Lymphocytes % 29.3; MCH 28.2 pg (27.0-33.0); MCHC 32.5 % (32.0-36.0); MCV 87 fL (80-95); MPV 10.2 fL (8.0-11.0); Monocytes % 9.3; Neutrophils % 60.6; Platelet Count 205 10^3/uL (130-400); RBC 4.71 10^6/uL (3.93-5.22); RDW 13.3 % (11.7-14.6); RDW-SD 42.3 fL; WBC 5.47 10^3/uL (4.4-10.8)
[2022-10-06 08:20] LABS: Bilirubin Negative (Negative); Blood Negative (Negative); Clarity Clear (Clear); Glucose Negative (Negative); Ketones Negative (Negative); Leukocyte Esterase Negative (Negative); Nitrite Negative (Negative); Specific Gravity 1.015 (1.005-1.025); Urobilinogen 0.2 mg/dL (Up to 0.2); pH 6.5 (5-8)
== END 2022-10-06 08:18 | disposition home or self-care (01) ==
LOC: LBO 08:18
PROVIDERS: PCP Naturopath; Visit Provider Naturopath
DX: R25.2 Cramp and spasm (principal); R10.9 Unspecified abdominal pain
CPT/HCPCS: 81003; 85025

== ENCOUNTER 2022-10-12 11:31 | Emergency (ER) | payer OTHER, SELFPAY ==
--- NOTE | 2022-10-12 11:30 | DI.US_ITS ---
Exam(s) US LOWER EXTREMITY VENOUS LT EXAM: US LOWER EXTREMITY VENOUS LT CLINICAL HISTORY: LEFT leg pain TECHNIQUE: Grayscale, color, and doppler imaging of the deep venous system of the left lower extremi ty was performed. COMPARISON: US US soft tiss abd wall/low back from 01/26/2019 FINDINGS: There is no evidence of intraluminal thrombus and there is normal compression and augmentation demons trated within the common femoral vein, femoral vein, and popliteal vein. In the ipsilateral calf the interrogated veins also exhibit normal compression/ augmentation properti es. The ipsilateral saphenofemoral junction is patent. IMPRESSION: 1. No evidence of DVT in the left lower extremity. DATA REPOSITORY:
[2022-10-12 11:35] VITALS: BP 148/83; PULSE 70; RESP 18; O2SAT 98
--- NOTE | 2022-10-12 13:25 | ED.GENADUL_ITS ---
Discharge Plan Disposition Patient Disposition: Home Condition: Stable Discharge Details Clinical Impression: Left leg pain Primary Care Provider: Leigh Roads ED Provider: Giacomo Uriarte Home Meds and New Rx's Prescriptions: Continued magnesium gluconate [Mag-G] 27 mg magnesium (500 mg) tablet 27 mg PO BID coenzyme [id number] E 100-100 mg-unit capsule 1 cap PO DAILY aspirin 81 mg tablet,delayed release (DR/EC) 81 mg PO DAILY Adult Probiotic 3 billion cell capsule 3,000 mmu cells PO DAILY Rx Instructions: administer with a meal vitamin B complex [B Complex-Vitamin B12] Tablet 1 tab PO DAILY potassium chloride 10 mEq capsule, extended release 10 meq PO DAILY Discharge Instructions Instructions: Leg Pain (ED) Additional Instructions: Ultrasound that was performed today did not reveal a blood clot. If pain persist over the next week, please follow-up with your primary care physician for repeat diagnostic testing. Please contact your primary care physician to arrange follow-up. Return to the ER immediately for any worsening or new concerning symptoms. Referrals: Leigh Rodas [Primary Care Provider] - Medical Decision Making 1330 -- 62-year-old female here with pain and swelling of her right lower extremity distal to the knee. Patient recently had surgery for renal cell carcinoma. Patient is at risk for DVT. Plan to obtain ultrasound. 1409 --ultrasound of the left leg was interpreted by radiology: Negative. Results were discussed with patient. Patient does note she may have tweaked her leg while walking the dogs. She denies direct trauma. I offered crutches and patient declined. Plan for outpatient follow-up. Patient understands that if pain persist, she will need additional diagnostic testing. HPI General Mode of arrival: ambulatory . Date/Time Provider Initiated Documentation: 10/12/22 11:39 . Limitations to Documentation: no limitations . Information obtained by: patient . HPI Narrative: 62-year-old female presents 5 weeks status post surgery for renal cell carcinoma, tumor removal and partial nephrectomy, now with pain and swelling of her posterior left knee and lower leg. Patient concern for DVT. Patient has no history of blood clots. Areas been painful over the past few days. No known trauma. Related Data Home Medications Medication Instructions Recorded Confirmed aspirin 81 mg tablet,delayed 81 mg PO DAILY 04/27/19 10/12/22 release coenzyme [id number] E 100 mg-100 1 cap PO DAILY 04/27/19 10/12/22 unit capsule magnesium gluconate 27 mg 27 mg PO BID 04/27/19 10/12/22 magnesium (500 mg) tablet (Mag-G) lactobacillus combination no.8 3 3,000 mmu cells PO DAILY 02/04/20 10/12/22 billion cell capsule (Adult Probiotic) vitamin B complex (B 1 tab PO DAILY 03/06/21 10/12/22 Complex-Vitamin B12 tablet) potassium chloride 10 mEq 10 meq PO DAILY 03/23/21 10/12/22 capsule,extended release Allergies Allergy/AdvReac Type Severity Reaction Status Date / Time No Known Allergies Allergy Verified 06/07/22 11:12 General Stated Complaint: GenMedical YANIQUE: 3 Review of Systems All systems reviewed & are unremarkable except as noted in HPI and below PFSH All Active Problems (Updated 10/12/22 @ 14:00 by Giacomo Uriarte MD) Left leg pain (Acute) Follow up (Acute) Acute diverticulitis (Acute) Bowel perforation (Acute) GINI (stress urinary incontinence, female) (Acute) Medical History Colorectal polyps (~05/14/19) Cystocele Endometriosis Family history of breast cancer (03/22/17) Mother Uterine leiomyoma Surgical History Abdominal hysterectomy 2000 Acquired absence of both cervix and uterus (02/26/16) MERRICK/BSO age 41 for Endometriosis and fibroid History of colonoscopy (~05/14/19) 05/03 - tubular adenoma 2006- nl Oophrectomy, Both 2000 Family History Mother Breast cancer at 50 Other Family history of breast cancer Personal history of malignant neoplasm Social History Smoking/Tobacco Use Status: Never Smoking risk assessment performed?: Yes Alcohol Intake: current Alcohol Intake frequency: holidays/special occasions only Alcohol type: wine Drug use: Never Substance use type: does not use Details: takes cbd oil Current gender identity: female Do you feel safe at home: Yes Do you feel safe in your relationship?: Yes Female Reproductive History Menstrual Menopause type: surgical History History 2 Para 3 Hx # Term Pregnancies Multiple births Hx # Pregnancies Ectopic pregnancies AB induced Hx Number of Living Children AB spontaneous Exam Extrem Left lower extremity: lower leg Details: tenderness (posterior lower leg, knee to distal); no erythema, no crepitus and no unusual warmth and foot Details: normal capillary refill and vascular exam Details: dorsalis pedis pulse present (2+) Course Vital Signs Vital signs: Vital Signs Pulse 70 10/12/22 11:35 Respiratory Rate 18 10/12/22 11:35 Blood Pressure 148/83 H 10/12/22 11:35 Pulse Oximetry 98 10/12/22 11:35 Pulse 70 10/12/22 11:35 Respiratory Rate 18 10/12/22 11:35 Respiratory Effort Normal, Non-Labored 10/12/22 11:37 Blood Pressure 148/83 H 10/12/22 11:35 Blood Pressure Position Sitting 10/12/22 11:35 Pulse Oximetry 98 10/12/22 11:35 Oxygen Delivery Method Room Air 10/12/22 11:35 Oxygen Flow Rate 0 10/12/22 11:35 Pain Level 8 10/12/22 11:35
[2022-10-12 14:14] VITALS: BP 122/82; PULSE 72; RESP 16; TEMP 36.5; O2SAT 94
== END 2022-10-12 14:16 | disposition home or self-care (01) ==
PROVIDERS: Emergency Provider Student in an Organized Health Care Education/Training Program; PCP Naturopath
DX: M79.605 Pain in left leg (principal)
CPT/HCPCS: 12014; 90471; 99284; 93971; 99283

== ENCOUNTER 2022-10-19 13:49 | Outpatient (CLI) | payer OTHER, SELFPAY ==
[2022-10-19 12:02] LABS: C-Reactive Protein 0.37 mg/dL (0.0-0.3)
[2022-10-19 12:10] LABS: ESR 5 mm/hr (0-30)
[2022-10-19 12:24] LABS: D-Dimer 415 ng/mlFEU (<500)
== END 2022-10-19 13:50 | disposition home or self-care (01) ==
LOC: LBO 13:50
PROVIDERS: PCP Naturopath; Visit Provider Naturopath
DX: M79.605 Pain in left leg (principal); R79.82 Elevated C-reactive protein (CRP)
CPT/HCPCS: 36415; 85652; 85379; 86140

== ENCOUNTER 2023-06-30 10:05 | Outpatient (REF) | payer OTHER, SELFPAY ==
[2023-06-30 13:04] LABS: Bilirubin Negative (Negative); Blood Negative (Negative); Clarity Clear (Clear); Glucose Negative (Negative); Ketones Negative (Negative); Leukocyte Esterase Negative (Negative); Nitrite Negative (Negative); Specific Gravity 1.015 (1.005-1.025); Urobilinogen 0.2 mg/dL (Up to 0.2)
== END 2023-06-30 10:06 | disposition home or self-care (01) ==
LOC: LBN 10:05
PROVIDERS: PCP Naturopath; Visit Provider Naturopath
DX: R82.998 Other abnormal findings in urine (principal)
CPT/HCPCS: 81003

== ENCOUNTER → 2023-12-06 01:04 | Outpatient (CLI) | payer OTHER, SELFPAY ==
--- NOTE | 2023-12-06 08:30 | DI.MAMMO_ITS ---
Exam(s) MAMMO SCREENING EXAM: MAMMO SCREENING CLINICAL HISTORY: <inf_study_reason> TECHNIQUE: Bilateral full field digital CC and MLO mammographic images were obtained with 3D tomosyn thesis and utilizing computer aided detection (CAD). COMPARISON: Available for comparison. FINDINGS: Masses/Architectural Distortion: None seen. Microcalcifications: No suspicious pleomorphic-type are seen. Skin Thickening/Nipple Retraction: None. IMPRESSION: 1. No significant interval change with no specific features of malignancy noted. 2. Unless there is more urgent need, screening mammography is recommended, as per [employer] guidelines. BI-RADS Category 1 - Negative Breast Density - Category B - Scattered areas of fibroglandular density Breast density category C or D implies that the patient has dense breast tissue. Dense breast tissue is very common and is not abnormal but dense breast tissue can make it harder to find cancer on a ma mmogram. Also, dense breast tissue may increase their breast cancer risk. This information about the result of the mammogram report was provided to the patient to raise their awareness. Use this report when you speak with the patient about their risks for breast cancer, which includes their family hist ory. At that time, you may recommend for more screening tests (Ultrasound or MRI) as they might be us eful based on their risk. A negative radiographic report should not delay biopsy if a dominant or clinically suspicious mass is present. Up to ten percent of cancers are not identified on mammography. A negative report may reinforce clinical impression. Adenosis and dense breasts may obscure an underlying neoplasm. False positive reports average 6 to 10%. Patient will receive a letter notifying them of these results.
== END ==
PROVIDERS: PCP Naturopath; Visit Provider Obstetrics & Gynecology
DX: Z12.31 Encounter for screening mammogram for malignant neoplasm of breast (principal)
CPT/HCPCS: 77063; 77067

== ENCOUNTER 2024-01-30 03:32 | Outpatient (CLI) | payer OTHER, SELFPAY ==
--- NOTE | 2024-01-30 11:23 | DI.RAD_ITS ---
Exam(s) XR HIP RT COMPLETE AP PELVIS EXAM: XR HIP RT COMPLETE AP PELVIS CLINICAL HISTORY: PAIN RT HIP JOINT, M25.551. TECHNIQUE: 2D digital imaging was performed. COMPARISON: No exams were available for comparison FINDINGS: Two views No evidence of pelvic nor hip fracture. No obvious degenerative changes in the hips. Additional lat eral view the right hip appears unremarkable. Osteitis symphysis pubis noted. IMPRESSION: No obvious findings in the hips. Osteitis symphysis pubis noted. DATA REPOSITORY: RADIATION DOSE DELIVERED:
== END 2024-01-30 03:52 ==
LOC: DI 03:32
PROVIDERS: PCP Naturopath; Visit Provider Naturopath
DX: M25.551 Pain in right hip (principal)
CPT/HCPCS: 73502

== ENCOUNTER 2024-02-20 01:14 | Outpatient (CLI) | payer BC, SELFPAY ==
--- NOTE | 2024-02-20 | DI.DEXA_ITS ---
Exam(s) XR DEXA BONE DENSITY W/WO ITALO EXAM: XR DEXA BONE DENSITY W/WO ITALO CLINICAL HISTORY: SCREENING FOR OSTEOPOROSIS Z13.820 TECHNIQUE: HoloTutto Horizon C densitometer analysis of left hip, lumbar spine and left forearm. Lat eral survey image of the thoracic and lumbar spine. COMPARISON: No exams were available for comparison FINDINGS: Lateral view of the thoracic and lumbar spine shows no evidence of compression fractures. Bone mineral density measurements of the lumbar spine correspond to a total T-score of 0.0, in the n ormal range. Bone mineral density measurements of the left hip correspond to a total T-score of -0.9. The femora l neck T-score is -1.2, in the mildly osteopenic range.. Theleft forearm bone mineral density measurements correspond to a T-score of the distal 3rd of 0.2, in the normal range.. IMPRESSION: Normal bone mineral density of the spine and forearm. Mild osteopenia of the hip.
== END 2024-02-20 01:34 ==
PROVIDERS: PCP Naturopath; Visit Provider Naturopath
DX: Z13.820 Encounter for screening for osteoporosis (principal); M85.89 Other specified disorders of bone density and structure, multiple sites
CPT/HCPCS: 77080

== ENCOUNTER 2024-03-28 01:05 | Outpatient (CLI) | payer BC, SELFPAY ==
--- NOTE | 2024-03-28 11:35 | DI.MRI_ITS ---
Exam(s) MR LOWER JOINT RT WO EXAM: MR LOWER JOINT RT WO CLINICAL HISTORY: MASS RT HIP JOINT, M25.851, OTHER JOINT DISORDERS RT HIP TECHNIQUE: Multiplanar multisequence MRI of Pelvis was performed COMPARISON: CR XR HIP RT COMPLETE AP PELVIS from 01/30/2024 FINDINGS: Bones: There is no fracture or contusion pattern. No bone marrow edema is seen. Small enthesophyte at greater trochanter. Joints: No significant joint effusion or gross labral defect is present. Prominent spurring at the p ubic symphysis no evidence of abnormal signal. Musculotendinous structures: Mild edema around the right greater trochanter. Mild edema around glut eus medius tendon. No visible tear. Intrapelvic structures: Status post hysterectomy. Sigmoid diverticulosis. Soft tissues: Unremarkable. No evidence of a mass. IMPRESSION: Right gluteus medius tendinosis. Mild trochanteric bursitis. DATA REPOSITORY:
== END 2024-03-28 01:25 ==
LOC: DI 01:05
PROVIDERS: PCP Naturopath; Visit Provider Naturopath
DX: M76.01 Gluteal tendinitis, right hip (principal)
CPT/HCPCS: 73721

== ENCOUNTER 2024-06-18 16:00 | Outpatient (REF) | payer BC, SELFPAY | END 2024-06-18 16:01 | disposition home or self-care (01) | LOC: LBN 16:00 | PROVIDERS: PCP Naturopath; Visit Provider Nurse Practitioner Family | DX: J02.9 Acute pharyngitis, unspecified (principal) | CPT/HCPCS: 87070 ==

== ENCOUNTER 2024-11-07 08:04 | Outpatient (CLI) | payer BC, SELFPAY ==
[2024-11-07 08:51] LABS: Abs Immature Grans 0.02 10^3/uL (0.0-0.06); Absolute Basophil Count 0.02 10^3/uL (0.0-0.2); Absolute Eosinophil Count 0.01 10^3/uL (0.0-0.7); Absolute Lymphocyte Count 1.41 10^3/uL (1.2-3.4); Absolute Monocyte Count 0.47 10^3/uL (0.1-0.8); Absolute Neutrophil Count 3.66 10^3/uL (1.2-6.7); Basophils % 0.4 %; Eosinophils % 0.2 %; HGB 13.1 g/dL (11.2-15.7); Immature Grans % 0.4 %; Lymphocytes % 25.2 %; MCH 28.2 pg (27.0-33.0); MCHC 32.8 % (32.0-36.0); MCV 86 fL (80-95); MPV 10.4 fL (8.0-11.0); Monocytes % 8.4 %; Neutrophils % 65.4 %; Platelet Count 231 10^3/uL (130-400); RBC 4.65 10^6/uL (3.93-5.22); RDW 12.6 % (11.7-14.6); RDW-SD 39.6 fL; WBC 5.59 10^3/uL (4.4-10.8)
[2024-11-07 09:17] LABS: D-Dimer 687 ng/mlFEU (<500)
[2024-11-07 10:24] LABS: ALT 36 U/L (14-59); AST 26 U/L (15-37); Albumin 3.8 g/dL (3.4-5.0); Alkaline Phosphatase 87 U/L (46-116); Anion Gap 9.2 mmol/L (3-11); BUN 12 mg/dL (7-18); Bilirubin, Total 0.5 mg/dL (0.2-1.0); CO2 28.8 mmol/L (21.0-32.0); CREATININE 0.8 mg/dL (0.55-1.02); Calcium 9.6 mg/dL (8.5-10.1); Chloride 104 mmol/L (98-107); Estimated GFR 82.23 (mL/min/1.73m2); FREE T4 1.11 ng/dL (0.76-1.46); Glucose 98 mg/dL (74-106); Potassium 4.2 mmol/L (3.5-5.1); Sodium 142 mmol/L (136-145); TSH 2.02 uIU/mL (0.36-3.74); Total Protein 7.6 g/dL (6.4-8.2)
[2024-11-07 12:48] LABS: Iron 47 ug/dL (50-170); Total Iron Binding Capacity 362 ug/dL (250-450); Transferrin Sat 13 % (15-50)
[2024-11-07 13:11] LABS: Ferritin 40 ng/mL (8-252); Vitamin D 25 Total 33 ng/mL (30-100)
[2024-11-07 13:21] LABS: Folate > 20.0 ng/mL (8.6-20.0)
[2024-11-07 13:43] LABS: Vitamin B12 > 2000 pg/mL (193-986)
[2024-11-09 10:48] LABS: DHEA Sulfate 111 ug/dL (30-182)
[2024-11-09 16:08] LABS: Copper, Serum 150 mcg/dL (77-206)
== END 2024-11-07 08:05 | disposition home or self-care (01) ==
LOC: LBO 08:04
PROVIDERS: PCP Naturopath; Visit Provider Naturopath
DX: K58.0 Irritable bowel syndrome with diarrhea (principal); R53.83 Other fatigue
CPT/HCPCS: 36415; 80053; 82306; 82525; 82627; 82607; 82728; 82746; 83540; 83550; 84439; 84443; 85025; 85379

== ENCOUNTER 2024-11-09 14:12 | Emergency (ER) | payer BC, SELFPAY ==
[2024-11-09 14:16] VITALS: BP 129/80; PULSE 96; RESP 18; TEMP 36.6; O2SAT 96
--- NOTE | 2024-11-09 14:33 | W.ED.GENAD ---
Discharge Plan Disposition Patient Disposition: Home Condition: Good Discharge Details Clinical Impression: Bilateral calf pain Primary Care Provider: Leigh Rodas ED Provider: Anjelica Melo Home Meds and New Rx's Prescriptions: Continued magnesium gluconate [Mag-G] 27 mg magnesium (500 mg) tablet 27 mg PO BID coenzyme [id number] E 100-100 mg-unit capsule 1 cap PO DAILY Adult Probiotic 3 billion cell capsule 3,000 mmu cells PO DAILY Rx Instructions: administer with a meal vitamin B complex [B Complex-Vitamin B12] Tablet 1 tab PO DAILY potassium chloride 10 mEq capsule, extended release 10 meq PO DAILY cholecalciferol (vitamin D3) 10 mcg (400 unit) capsule 10 mcg PO DAILY Discharge Instructions Instructions: Leg Pain (ED) Additional Instructions: As we discussed, the ultrasound did not show any indication of a DVT. However, you do have varicose veins that can benefit from compression hose and elevation to help reduce some of the discomfort. Please discuss this further with your primary care, you may need a referral once again to vascular surgery for reevaluation of the varicosities as well as to discuss your family history of peripheral vascular disease. If you develop increased pain, increased swelling, chest pain, shortness of breath or other new/worsening symptom please seek care urgently once again. Otherwise, please follow-up with your primary care physician in the next 1 to 2 weeks. Referrals: Leigh Rodas [Primary Care Provider, Medicine] [facility] Date/Time Provider Initiated Documentation: 11/09/24 14:16. Limitations to Documentation: no limitations. Information obtained by: patient and RN notes reviewed. History of Present Illness 64 year old F presents to the emergency department with the chief complaint of bilateral calf pain, right more than left, described as mild, and is localized to the left, right and lower extremity. Patient reports no radiation. Patient started experiencing this week(s) and it has been intermittent. No relieving factors improve symptom(s), Other factors that worsen symptoms (worse in the AM) . Patient notes no other symptoms.. Patient did receive the following treatments prior to arrival, none Related Data Home Medications ?Medication ?Instructions ?Recorded ?Confirmed coenzyme [id number] E 100 mg-100 1 cap PO DAILY 04/27/19 11/29/23 unit capsule magnesium gluconate 27 mg 27 mg PO BID 04/27/19 11/29/23 magnesium (500 mg) tablet (Mag-G) lactobacillus combination no.8 3 3,000 mmu cells PO DAILY 02/04/20 11/29/23 billion cell capsule (Adult Probiotic) vitamin B complex (B 1 tab PO DAILY 03/06/21 11/29/23 Complex-Vitamin B12 tablet) potassium chloride 10 mEq 10 meq PO DAILY 03/23/21 11/29/23 capsule,extended release cholecalciferol (vitamin D3) 10 10 mcg PO DAILY 11/29/23 11/29/23 mcg (400 unit) capsule Allergies Allergy/AdvReac Type Severity Reaction Status Date / Time No Known Allergies Allergy Verified 06/18/24 10:41 General Stated Complaint: Vascular YANIQUE: 4 Review of Systems Constitutional Constitutional: Reports as per HPI, Denies fever(s) and Denies weakness Cardiovascular Cardiovascular: Reports as per HPI Respiratory Respiratory: Reports as per HPI and Denies cough Musculoskeletal Musculoskeletal: Reports as per HPI and Denies tingling Integumentary/Breasts Skin/Breast: Reports as per HPI, Denies rash and Denies wounds Neurologic Neurologic: Reports as per HPI, Denies tingling, Denies paresthesias and Denies weakness Exam Const General: cooperative, healthy appearing, comfortable, no acute distress, well developed and well groomed Nutritional Appearance: well nourished and overweight Orientation: alert and awake Resp Effort & Inspection: normal respiratory effort, able to speak in complete sentences and no respiratory distress Cardio Rate: regular rate Rhythm: regular rhythm Skin General skin exam: no rashes or lesions noted Lesions: no lesions Rashes: no rashes Trauma: no lacerations or abrasions Neuro General: patient alert and patient awake Cognition: normal cognition Speech: speech normal Gait: normal gait Motor: muscle tone normal throughout Sensory Exam: no sensory deficits noted Extrem General: normal to inspection, capillary refill normal, no joint enlargement, no clubbing, cyanosis or edema, normal gait, calf tenderness (mild, fairly focal along medial aspect) bilaterally, no pedal edema and other (bilateral varicosities. No erythema, warmth, palpable cord) Course Vital Signs Vital signs: Vital Signs Temperature 36.6 C 11/09/24 14:16 Pulse 96 H 11/09/24 14:16 Respiratory Rate 18 11/09/24 14:16 Blood Pressure 129/80 11/09/24 14:16 Pulse Oximetry 96 11/09/24 14:16 Temperature 36.6 C 11/09/24 14:16 Temperature Source Oral 11/09/24 14:16 Pulse 96 H 11/09/24 14:16 Respiratory Rate 18 11/09/24 14:16 Blood Pressure 129/80 11/09/24 14:16 Blood Pressure Position Sitting 11/09/24 14:16 Pulse Oximetry 96 11/09/24 14:16 Oxygen Delivery Method Room Air 11/09/24 14:16 Oxygen Flow Rate 0 11/09/24 14:16 Pain Level 4 11/09/24 14:16 Medical Decision Making The patient is a pleasant 64-year-old female presented with chief complaint of possible DVT in her right calf. She reports she been having right calf pain for the past 3 weeks has been intermittent, worse when she first wakes. States that she has been taking potassium and magnesium as well as increasing her hydration as she was having some muscle spasms and tightness. States that she also was kayaking and believes this may have been associated with the positioning in the kayak. However, was seen by her taxicab driver today, concern for DVT and a D-dimer was obtained which was slightly elevated above her age-adjusted normal at 687. No SOB, cough, fevers. Has had varicosities. No sedentary hx, no personal or familial hx of DVT or clotting disorders. Uses compressive hose in the winter, none recently. Past medical history significant for cystocele, endometriosis, family history of breast cancer, uterine myoma. On exam, patient appears nontoxic. She is resting comfortably no acute distress. No shortness of breath or chest pain. No significant swelling, erythema or palpable cords of bilateral calves. She is 2+ distal pulses. She has fairly focal location of bilateral calf pain along the medial aspect of both calves but no palpable cord. Will obtain DVT ultrasound studies for further evaluation. US reviewed by radiologist: FINDINGS: The bilateral common femoral, femoral and popliteal veins demonstrate normal compressibility, augmentation, and color Doppler. The posterior tibial and parent veins are patent. IMPRESSION: Right: Negative for DVT Left: Negative for DVT Discussed with patient. She has not seen the vascular surgery historically for familial peripheral vascular disease. I advise that she discuss this further and potential referral from her primary care. Encourage elevation of her extremities. We discussed compression hose for her varicosities. Return precautions were discussed. All of her questions and concerns were addressed and she is in agreement this plan. 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) MERRICK/BSO age 41 for Endometriosis and fibroid History of colonoscopy (~05/14/19) 05/03 - tubular adenoma 2006- nl Oophrectomy, Both 2000 Family History Mother Breast cancer at 50 Other Family history of breast cancer Personal history of malignant neoplasm Social History Smoking/Tobacco Use Status: Never Smoking risk assessment performed?: Yes Alcohol Intake: current Alcohol Intake frequency: holidays/special occasions only Alcohol type: wine Drug use: Never Substance use type: does not use Details: takes cbd oil Current gender identity: female Do you feel safe at home: Yes Do you feel safe in your relationship?: Yes Female Reproductive History Menstrual Menopause type: surgical History History 2 Para 3 Hx # Term Pregnancies Multiple births Hx # Pregnancies Ectopic pregnancies AB induced Hx Number of Living Children AB spontaneous
--- NOTE | 2024-11-09 14:35 | DI.US_ITS ---
Exam(s) US EXTREMITY VENOUS BI EXAM: US EXTREMITY VENOUS BI CLINICAL HISTORY: right calf pain, elevated d-dimer. TECHNIQUE: Bilateral lower extremity venous ultrasound performed using grayscale, color-flow, and spectral Doppler analysis. COMPARISON: No exams were available for comparison FINDINGS: The bilateral common femoral, femoral and popliteal veins demonstrate normal compressibility, augmentation, and color Doppler. The posterior tibial and parent veins are patent. IMPRESSION: Right: Negative for DVT Left: Negative for DVT DATA REPOSITORY:
== END 2024-11-09 15:51 | disposition home or self-care (01) ==
PROVIDERS: Emergency Provider Physician Assistant; PCP Naturopath
DX: M79.661 Pain in right lower leg (principal); M79.662 Pain in left lower leg
CPT/HCPCS: 99283; 93970

== ENCOUNTER 2024-12-06 01:19 | Outpatient (CLI) | payer BC, SELFPAY ==
--- NOTE | 2024-12-06 | DI.MAMMO_ITS ---
Exam(s) MAMMO SCREENING EXAM: MAMMO SCREENING CLINICAL HISTORY: HORMONE REPLACEMENT THERAPY, SCREENING Z79.890 TECHNIQUE: Mammograms were interpreted according to the usual protocol including computer analysis with CAD system, tomosynthesis and C-view imaging. COMPARISON: 2014 through 2023 FINDINGS: The breasts are composed of scattered fibroglandular densities, Breast Density category B. No suspicious masses or suspicious microcalcifications are seen. No skin thickening or abnormal axillary lymph nodes are seen. There has been no significant change from prior exams. IMPRESSION: BI-RADS Category 1, Negative mammogram Yearly screening mammography is recommended. Breast Density - Category B - There are scattered areas of fibroglandular density. Breast density Category C or D implies that the patient has dense breast tissue. Dense breast tissue can make it harder to find cancer on a mammogram. Dense breast tissue is also associated with an increased risk of breast cancer. This information about the result of the mammogram report was provided to the patient to raise their awareness. Use this report when you speak with the patient about their risks for breast cancer, which includes their family history. At that time, you may recommend additional screening tests (Ultrasound or MRI) as these tests may add significant information. A negative radiographic report should not delay biopsy if a dominant or clinically suspicious mass is present. Up to ten percent of cancers are not identified on mammography. A negative report may reinforce clinical impression. Adenosis and dense breasts may obscure an underlying neoplasm. False positive reports average 6 to 10%. Patient will receive a letter notifying them of these results.
== END 2024-12-06 01:39 ==
LOC: DI 01:19
PROVIDERS: PCP Naturopath; Visit Provider Naturopath
DX: Z12.31 Encounter for screening mammogram for malignant neoplasm of breast (principal); Z79.890 Hormone replacement therapy; R92.323 Mammographic fibroglandular density, bilateral breasts
CPT/HCPCS: 77063; 77067

== ENCOUNTER 2025-01-22 08:16 | Outpatient (CLI) | payer BC, SELFPAY ==
[2025-01-22 16:35] LABS: Anion Gap 8.4 mmol/L (3-11); CO2 28.6 mmol/L (21.0-32.0); Chloride 105 mmol/L (98-107); Potassium 4.4 mmol/L (3.5-5.1); Sodium 142 mmol/L (136-145)
== END 2025-01-22 08:17 | disposition home or self-care (01) ==
LOC: LBO 01-23 08:16
PROVIDERS: PCP Naturopath; Visit Provider Naturopath
DX: I10 Essential (primary) hypertension (principal)
CPT/HCPCS: 36415; 80051

== ENCOUNTER 2025-02-28 05:49 | Outpatient (CLI) | payer BC, SELFPAY ==
--- NOTE | 2025-02-28 | ETT_ITS ---
APPROVED REPORT Exam: Exercise Treadmill Patient Location: Out-Patient Room/Bed: Stress Nurse: Pastora Acevedo RN Ordering Provider:JUNG FALCON, Contact Number: [phone] BMI: 33.44 Baseline Rhythm: Sinus Rhythm. Comment: ? absent vs inverted P waves; ? Junctional Rhythm at baseline. Indications: Essential (Primary) Hypertension Uncontrolled. Medical History Medical History: Menopause Syndrome; HTN; Heart Murmur; Hyperhomocysteinemia; GERD; Iron Deficiency. Cardiac Medications: Testosterone Cream; Magnesium Tartrate; Nitrofurantoin; Aspirin. Allergies: Curcumin; Stevia. Cardiac Risk Factors: Family Hx; HTN; Obesity. Previous Cardiac Procedures: None. Pretest Chest Pain Characteristics: None. Exercise History: Physically active. Physical Disabilities: None. Lung Sounds: Diminished in bilateral posterior bases, but clear bilaterally throughout, anterior and posterior, otherwise. Heart Sounds: S1 and S2 auscultated. Stress Test Details Test: Exercise stress testing was performed using a Ravi protocol. Rest Stress HR Resting HR Supine: 64 bpm Max Heart Rate (APMHR): 156 bpm Resting HR Standin bpm Target HR (85% APMHR): 133 bpm Max HR Achieved: 135 bpm % of APMHR: 87 Recovery HR: 68 bpm HR response to stress: Normal HR response to stress. BP Resting BP Supine: 110/66 mmHg Resting BP Standin/72 mmHg Max BP: 164/72 mmHg Recovery BP: 128/70 mmHg BP response to stress: Normal blood pressure response to stress. ECG Resting ECG: Sinus Rhythm. Ectopy: Occasional PVC's; Rare PAC. Comment: ? absent vs. inverted P waves; ? Junctional Rhythm at baseline. Stress ECG: Sinus Tachycardia. ST Change: No significant ST segment changes noted. Arrhythmia: Occasional PVC's; Rare Couplet. Comment: ? absent vs. inverted P waves; ? Junctional Rhythm at baseline. Recovery ECG: Sinus Rhythm. Recovery ST Change: No significant ST segment changes noted. Recovery Arrhythmia: None. Comment: ? absent vs. inverted P waves; ? Junctional Rhythm at baseline. Clinical Reason for Termination: Target HR Achieved; RN unable to adequately read the ECG tracing (significant artifact noted). Stress Symptoms: Dyspnea. Exercise duration: 06 min37 sec Highest Stage Reached: Stage 3: 3.4 mph at 14% grade. Exercise capacity: 8.00 METs Angina Score: None Rate Pressure Product: [id number] Stress ECG Conclusion 1. Resting electrocardiogram was normal 2. Patient exercised on the Ravi protocol completed workload of 8 METS 3. Normal heart rate and blood pressure response to exercise. Patient achieved 87% of maximum predicted heart rate for age 4. There was no electrocardiographic evidence of myocardial ischemia 5. There were no significant dysrhythmias Critical Notification Critical Value: Yes Physician Notified Date: 02/28/2025 Time: 823 Physician Name: Romi Malone MD Response Time: 1 minute. Stress Test Summary STAGE Time (mins) Speed (mph) Grade (%) HR BP SpO2 SYMPTOMS METS Supine 64 110/66 94 Standing 67 120/72 95 1 3 1.7 10 109 122/64 94 4.5 2 6 2.5 12 126 164/72 95 Pt. c/o mild shortness of breath. 7 3 9 3.4 14 135 95 Pt. c/o moderate shortness of breath. 10 1 min recovery 90 158/72 96 Pt. c/o moderate shortness of breath. 3 min recovery 66 124/74 96 Pt. c/o mild shortness of breath. 6 min recovery 68 128/70 95 Pt. states that all shortness of breath has resolved. Pt. performed an ETT using the Ravi protocol. Pt.'s resting ECG tracing noted to have ? absent vs. inverted P waves; ? Junctional Rhythm. Dr. Malone was notified at 0824 on 02/28/25 and was asked to confirm what rhythm she saw. Dr. Malone responded at 0825 on 02/28/25 and stated that it wasn't atrial fibrillation or junctional rhythm if a P wave was present. RN asked Dr. Malone if the inverted P waves were anything to be concerned about. Dr. Malone stated that they weren't anything to be concerned about. Nursing staff then proceeded with the stress test. Stress test was stopped due to pt. achieving a heart rate higher than the target heart rate and due to RN inability to adequately read the ECG tracing an ymore due to significant artifact. Pt. experienced moderate shortness of breath during the stress test, which resolved prior to the pt. leaving the Stress Lab. Pt. was conversing pleasantly with nursing staff upon leaving the Stress Lab. Pt. left ambulatory in no apparent distress.
== END 2025-02-28 06:09 ==
LOC: DI 05:49
PROVIDERS: PCP Naturopath; Visit Provider Naturopath
DX: I10 Essential (primary) hypertension (principal)
CPT/HCPCS: 93017

== ENCOUNTER 2025-03-25 08:41 | Outpatient (CLI) | payer BC, SELFPAY ==
--- NOTE | 2025-03-25 08:30 | RT.EKG_ITS ---
APPROVED REPORT Exam: Resting ECG Reason for Exam: HTN Patient Location: O HR:67 bpm ECG Measurements Heart Rate 67 AXIS WA 174 P -5 QRSd 86 QRS 20 QT 378 T 28 QTc 399 Conclusion Sinus rhythm...normal P axis, V-rate 50- 99 Ventricular premature complex...V complex w/ short R-R interval
== END 2025-03-25 08:42 | disposition home or self-care (01) ==
LOC: DI.CARD 08:42
PROVIDERS: PCP Naturopath; Visit Provider Registered Nurse
DX: I10 Essential (primary) hypertension (principal)
CPT/HCPCS: 93010